=== PATIENT | female | born 1990 | race Caucasian/White ===

== ENCOUNTER 2017-02-26 12:38 | Emergency (ER) | payer MEDICAID ==
[~2017-02-26] VITALS: Ht 170.2 cm; Wt 72.1 kg
[~2017-02-26 12:38] MED LIST: AMOXICILLIN 50500 MG PO; BACTRIM DS 8001 TAB PO; CIPRO 500MG TA500 MG PO; DEPRESSION PO; ETODOLAC400 MG PO; KEFLEX 500MG.500 MG PO; KETOCONAZOLE200 MG PO; LODINE200 MG PO; LORTAB 5/500 501 TAB PO; MOTRIN600 M1 PO; MULTIVITAMIN1 TA1 PO; NAPROSYN 500MG500 MG PO; NIFEDIPINE XL 330 MG PO; NOMEDS; NOMEDS XX; PHENERGAN 25MG.25 M1 PO; PHENTERMINE37.5 MG PO; PREDNISONE 20MG20 MG PO; PRENATAL PLUS1 TA1 PO; ROBAXIN-750750 MG PO; TAMIFLU75 MG PO; TESSALON PERLE100 MG PO; TYLENOL/COD #31 EACH PO; ULTRACET 325 MG1 TAB PO; ULTRAM 50 MG TA50 MG PO; ULTRAM50 MG PO; VIBRAMYCIN 100100 MG PO; VICODIN 5/500 T1 TAB PO; VISTARIL25 MG PO; VOLTAREN75 MG PO; ZITHROMAX Z PA250 MG PO; ZITHROMAX Z-PA250 M1 PO
[2017-02-26] MEDS ORDERED: PHENAZOPYRIDIN200 MG PO (12:50)
[2017-02-26] MEDS ORDERED: CIPROFLOXACIN500 MG PO (12:50)
[2017-02-26 12:55] LABS: URINE BILIRUBIN - DIPSTICK NEGATIVE (NEG)
[2017-02-26 12:56] LABS: URINE BLOOD 2+ (NEG)
--- NOTE | 2017-02-26 13:08 | Urgent Treatment Center Report ---
History of Present Issue Date/Time Seen by Provider 02/26/17 1300 Visit Reason Pt arrived:Walked Presenting Problem:PT THINKS SHE MAY HAVE A UTI. PT C/O LOWER BACK AND FLANK PAIN AND ADVISES THAT WHEN SHE GOES TO URINATE, SHE HAS TO FORCE IT. PT STATES THAT IT HAS BEEN GOING ON FOR ABOUT 3 WEEKS AND SHE HAS BEEN ON ANTIBIOTICS BY HER PCP AND IT'S NOT HELPING Location if Accident: Onset of symptoms date/time:/ or onset unknown for:MEDICAL HX UNKNOWN Have you (or family members/close friends) recently traveled outside the [place]? N If Yes, where/when: Have you had exposure to infectious disease within the past month? TB? Other? Specify: c/o "I think I have a UTI still". c/o urinary frequency, hesitancy, urgency x "nearly 3 weeks". Reports saw PCP, Dr. Sosa initially. He dx her w/ UTI but did not check her urine. Prescribed cipro 500mg BID and pyridium 200mg TID PRN but just picked up 3rd prescription of it yesterday "this is the 3rd week taking that" and no improvement. Denies fever. Malaise several days ago for first time. Low back pain has persisted with right worse than left. Hasn't migrated and doesn't radiate. No nausea, vomiting, abdominal pain, dysurian. Other than being orange from pyridium, urine looks and smells the same. Denies vaginal discharge, itching, pain. Source patient Exam Limitations no limitations ALLERGIES Coded Allergies: No Known Allergies (06/30/16) Home Medications Reported Medications Ciprofloxacin HCl 500 MG PO BID PHENAZOPYRIDINE HCL (Phenazopyridine HCl) 200 MG PO TID History Medical History General CAD? No Angina: No [place]: No Hypertension? No Hyperlipidemia? No CHF? No DVT? No PE? No COPD? No Asthma? No Anemia? No GERD? No Gastric ulcers? No GI Bleed? No Hernia? No Thyroid Problems? No Hypothyroidism? No CVA? No Seizures? Yes Diabetes? No Insulin Dependent: No Insulin Pump: No Home FSBS? No Renal Insuffiency? No UTI? Yes Stones? No BPH? No GB Disease: No Nephritic Syndrome? No Asplenia? No Hepatitis? No Sickle Cell Disease? No Arthritis? No Migraines? No Cataracts? No Glaucoma? No MRSA? No HIV? No TB? No Anxiety? No Depression? No Cancer? No More? No Immunization HX DT/Tetanus < 1 YR AGO Flu NEVER Pneumonia NEVER Surgical Hx Previous Surgery?Y C SECTION X 2 Tubal Ligation Exploratory Laparoscopy Family History Family HX Diabetes Yes CAD Yes Hypertension Yes Hyperlipidemia Yes Cancer Yes TB No Social History Smoking Hx Smoker: Current Every Day Smoker Tobacco: Yes Type Cigarettes Packs/day < 1 Pack Alcohol Alcohol: No Review of Systems All Other Systems Reviewed and Negative Constitutional see HPI, denies chills Respiratory denies shortness of breath Cardiovascular denies chest pain Gastrointestinal see HPI, denies constipation, denies diarrhea Genitourinary see HPI, normal menstrual period ( but not currently). denies: abnormal vaginal bleeding, hematuria. Musculoskeletal see HPI Skin denies change in color, denies lesions, denies lumps, denies rash Psychiatric/Neurological denies numbness, denies tingling Physical Exam Vital Signs Vital Signs Date Time Temp Pulse Resp B/P Pulse O2 O2 Flow FiO2 Ox Delivery Rate 02/26 1245 97.6 86 18 126/74 97 General Appearance normal appearance, no apparent distress Respiratory Status No: respiratory distress. Lung Sounds anterior: lungs clear. posterior: lungs clear. bilateral: lungs clear. Cardiovascular regular rate/rhythm, no peripheral edema, no murmur Gastrointestinal normal bowel sounds, non tender, soft, no organomegaly, no pulsatile mass, no suprapubic tenderness, bladder not distended Back no vertebral tenderness, gait normal, CVA tenderness (R) (moderate to severe), CVA tenderness (L) (mild to moderate), full ROM Extremities normal range of motion, normal inspection Strength 5 Lower Ext (L), 5 Lower Ext (R) Neurologic alert Skin intact, normal color, warm/dry Medical Decision Making LABS/Meds/Orders Pt receiving controlled substance in ED? No Results/Orders Laboratory Tests 02/26/17 1315: Sodium 139, Potassium 4.0, Chloride 103, Carbon Dioxide 25, BUN 12, Creatinine 0.7, Estimated Creat Clear 139, Estimated GFR (MDRD) 101, Glucose 87, Calcium 8.9, WBC 8.9, RBC 4.57, Hgb 14.0, Hct 41.4, MCV 90.5, RDW 12.6, Plt Count 187, MPV 9.3, Gran % 65.5, Gran # 5.8, Lymphocytes % 28.3, Monocytes % 4.0, Eosinophils % 1.6, Basophils % 0.6, Lymphocytes # 2.5, Monocytes # 0.4, Eosinophils # 0.1, Basophils # 0.1, PUBS MCHC 33.8, MCH 30.6 02/26/17 1306: Sodium Cancelled, Potassium Cancelled, Chloride Cancelled, Carbon Dioxide Cancelled, BUN Cancelled, Creatinine Cancelled, Estimated Creat Clear Cancelled, Estimated GFR (MDRD) Cancelled, Glucose Cancelled, Calcium Cancelled, WBC Cancelled, RBC Cancelled, Hgb Cancelled, Hct Cancelled, MCV Cancelled, RDW Cancelled, Plt Count Cancelled, Gran % Cancelled, Gran # Cancelled, Lymphocytes % Cancelled, Eosinophils % Cancelled, Basophils % Cancelled, Lymphocytes # Cancelled, Eosinophils # Cancelled, Basophils # Cancelled, PUBS MCHC Cancelled, MCH Cancelled 02/26/17 1244: Urine Color YELLOW, Urine Appearance Clear, Urine pH 5.5, Ur Specific [place] 1.010, Urine Protein NEGATIVE, Urine Ketones NEGATIVE, Urine Blood 2+ H, Urine Nitrate NEGATIVE, Urine Bilirubin NEGATIVE, Urine Urobilinogen 0.2, Ur Leukocyte Esterase NEGATIVE, Urine Glucose NEGATIVE Orders Procedure Date/time Status CBC WITH AUTO DIFF 02/26 1308 Complete BASIC METABOLIC PROFILE 02/26 1308 Complete [facility] URINE DIPSTICK 02/26 1244 Complete Progress [facility] Progress Notes 1 Date 02/26/17 Time 1315 Comment RN at collecting blood for labs [facility] Progress Notes 2 Date 02/26/17 Time 1417 Comment Checked on patient. She is on phone. Doing ok. Request a drink but otherwise no needs. Still waiting on lab reults. RNXimena, called lab. Over looked. Will run now. Departure Departure Time of Disposition 1432 Disposition DC Home or Self Care(routine) Clinical Impression Primary Impression: Hematuria Secondary Impressions: Urinary frequency Condition STABLE Referrals Gelacio CEBALLOS,Oracio Ledesma Urologist, if unable to get into Dr. Brizuela. Due to blood seen in urine today. may require referral from Dr. Sosa so highly recommend you follow up with Dr. Sosa first. Sarath Sosa Should try to follow up here first. He needs to know current treatment isn't working so you came to [facility]. He can request [facility] records. If unable to get into him then can try going directly to urologist but I am not sure if your insurance requires referral from your family doctor first. Patient Instructions DI for Hematuria Additional Instructions Your blood count and kidney function was normal today STOP pyridium and cipro since you have taking it nearly 3 weeks and it isn't helping. Start and complete bactrim. Follow up in 1-[address] Sosa for further treatment and follow up. Discharge Counseling Counseled pt/family regarding diagnosis, test results, medications/RX, home care, follow up needs Prescriptions Current Visit Scripts SULFAMETHOXAZOLE W/TRIMETHOPRI (Bactrim Ds Tab) 1 TABLET PO BID #14 TAB at 0646
--- NOTE | 2017-02-26 13:08 | Urgent Treatment Center Report ---
History of Present Issue Date/Time Seen by Provider 02/26/17 1300 Visit Reason Pt arrived:Walked Presenting Problem:PT THINKS SHE MAY HAVE A UTI. PT C/O LOWER BACK AND FLANK PAIN AND ADVISES THAT WHEN SHE GOES TO URINATE, SHE HAS TO FORCE IT. PT STATES THAT IT HAS BEEN GOING ON FOR ABOUT 3 WEEKS AND SHE HAS BEEN ON ANTIBIOTICS BY HER PCP AND IT'S NOT HELPING Location if Accident: Onset of symptoms date/time:/ or onset unknown for:MEDICAL HX UNKNOWN Have you (or family members/close friends) recently traveled outside the [place]? N If Yes, where/when: Have you had exposure to infectious disease within the past month? TB? Other? Specify: c/o "I think I have a UTI still". c/o urinary frequency, hesitancy, urgency x "nearly 3 weeks". Reports saw PCP, Dr. Sosa initially. He dx her w/ UTI but did not check her urine. Prescribed cipro 500mg BID and pyridium 200mg TID PRN but just picked up 3rd prescription of it yesterday "this is the 3rd week taking that" and no improvement. Denies fever. Malaise several days ago for first time. Low back pain has persisted with right worse than left. Hasn't migrated and doesn't radiate. No nausea, vomiting, abdominal pain, dysurian. Other than being orange from pyridium, urine looks and smells the same. Denies vaginal discharge, itching, pain. Source patient Exam Limitations no limitations ALLERGIES Coded Allergies: No Known Allergies (06/30/16) Home Medications Reported Medications Ciprofloxacin HCl 500 MG PO BID PHENAZOPYRIDINE HCL (Phenazopyridine HCl) 200 MG PO TID History Medical History General CAD? No Angina: No [place]: No Hypertension? No Hyperlipidemia? No CHF? No DVT? No PE? No COPD? No Asthma? No Anemia? No GERD? No Gastric ulcers? No GI Bleed? No Hernia? No Thyroid Problems? No Hypothyroidism? No CVA? No Seizures? Yes Diabetes? No Insulin Dependent: No Insulin Pump: No Home FSBS? No Renal Insuffiency? No UTI? Yes Stones? No BPH? No GB Disease: No Nephritic Syndrome? No Asplenia? No Hepatitis? No Sickle Cell Disease? No Arthritis? No Migraines? No Cataracts? No Glaucoma? No MRSA? No HIV? No TB? No Anxiety? No Depression? No Cancer? No More? No Immunization HX DT/Tetanus < 1 YR AGO Flu NEVER Pneumonia NEVER Surgical Hx Previous Surgery?Y C SECTION X 2 Tubal Ligation Exploratory Laparoscopy Family History Family HX Diabetes Yes CAD Yes Hypertension Yes Hyperlipidemia Yes Cancer Yes TB No Social History Smoking Hx Smoker: Current Every Day Smoker Tobacco: Yes Type Cigarettes Packs/day < 1 Pack Alcohol Alcohol: No Review of Systems All Other Systems Reviewed and Negative Constitutional see HPI, denies chills Respiratory denies shortness of breath Cardiovascular denies chest pain Gastrointestinal see HPI, denies constipation, denies diarrhea Genitourinary see HPI, normal menstrual period ( but not currently). denies: abnormal vaginal bleeding, hematuria. Musculoskeletal see HPI Skin denies change in color, denies lesions, denies lumps, denies rash Psychiatric/Neurological denies numbness, denies tingling Physical Exam Vital Signs Vital Signs Date Time Temp Pulse Resp B/P Pulse O2 O2 Flow FiO2 Ox Delivery Rate 02/26 1245 97.6 86 18 126/74 97 General Appearance normal appearance, no apparent distress Respiratory Status No: respiratory distress. Lung Sounds anterior: lungs clear. posterior: lungs clear. bilateral: lungs clear. Cardiovascular regular rate/rhythm, no peripheral edema, no murmur Gastrointestinal normal bowel sounds, non tender, soft, no organomegaly, no pulsatile mass, no suprapubic tenderness, bladder not distended Back no vertebral tenderness, gait normal, CVA tenderness (R) (moderate to severe), CVA tenderness (L) (mild to moderate), full ROM Extremities normal range of motion, normal inspection Strength 5 Lower Ext (L), 5 Lower Ext (R) Neurologic alert Skin intact, normal color, warm/dry Medical Decision Making LABS/Meds/Orders Pt receiving controlled substance in ED? No Results/Orders Laboratory Tests 02/26/17 1315: Sodium 139, Potassium 4.0, Chloride 103, Carbon Dioxide 25, BUN 12, Creatinine 0.7, Estimated Creat Clear 139, Estimated GFR (MDRD) 101, Glucose 87, Calcium 8.9, WBC 8.9, RBC 4.57, Hgb 14.0, Hct 41.4, MCV 90.5, RDW 12.6, Plt Count 187, MPV 9.3, Gran % 65.5, Gran # 5.8, Lymphocytes % 28.3, Monocytes % 4.0, Eosinophils % 1.6, Basophils % 0.6, Lymphocytes # 2.5, Monocytes # 0.4, Eosinophils # 0.1, Basophils # 0.1, PUBS MCHC 33.8, MCH 30.6 02/26/17 1306: Sodium Cancelled, Potassium Cancelled, Chloride Cancelled, Carbon Dioxide Cancelled, BUN Cancelled, Creatinine Cancelled, Estimated Creat Clear Cancelled, Estimated GFR (MDRD) Cancelled, Glucose Cancelled, Calcium Cancelled, WBC Cancelled, RBC Cancelled, Hgb Cancelled, Hct Cancelled, MCV Cancelled, RDW Cancelled, Plt Count Cancelled, Gran % Cancelled, Gran # Cancelled, Lymphocytes % Cancelled, Eosinophils % Cancelled, Basophils % Cancelled, Lymphocytes # Cancelled, Eosinophils # Cancelled, Basophils # Cancelled, PUBS MCHC Cancelled, MCH Cancelled 02/26/17 1244: Urine Color YELLOW, Urine Appearance Clear, Urine pH 5.5, Ur Specific [place] 1.010, Urine Protein NEGATIVE, Urine Ketones NEGATIVE, Urine Blood 2+ H, Urine Nitrate NEGATIVE, Urine Bilirubin NEGATIVE, Urine Urobilinogen 0.2, Ur Leukocyte Esterase NEGATIVE, Urine Glucose NEGATIVE Orders Procedure Date/time Status CBC WITH AUTO DIFF 02/26 1308 Complete BASIC METABOLIC PROFILE 02/26 1308 Complete [facility] URINE DIPSTICK 02/26 1244 Complete Progress [facility] Progress Notes 1 Date 02/26/17 Time 1315 Comment RN at collecting blood for labs [facility] Progress Notes 2 Date 02/26/17 Time 1417 Comment Checked on patient. She is on phone. Doing ok. Request a drink but otherwise no needs. Still waiting on lab reults. RNXimena, called lab. Over looked. Will run now. Departure Departure Time of Disposition 1432 Disposition DC Home or Self Care(routine) Clinical Impression Primary Impression: Hematuria Secondary Impressions: Urinary frequency Condition STABLE Referrals Gelacio CEBALLOS,Oracio Ledesma Urologist, if unable to get into Dr. Brizuela. Due to blood seen in urine today. may require referral from Dr. Sosa so highly recommend you follow up with Dr. Sosa first. Sarath Sosa Should try to follow up here first. He needs to know current treatment isn't working so you came to [facility]. He can request [facility] records. If unable to get into him then can try going directly to urologist but I am not sure if your insurance requires referral from your family doctor first. Patient Instructions DI for Hematuria Additional Instructions Your blood count and kidney function was normal today STOP pyridium and cipro since you have taking it nearly 3 weeks and it isn't helping. Start and complete bactrim. Follow up in 1-[address] Sosa for further treatment and follow up. Discharge Counseling Counseled pt/family regarding diagnosis, test results, medications/RX, home care, follow up needs Prescriptions Current Visit Scripts SULFAMETHOXAZOLE W/TRIMETHOPRI (Bactrim Ds Tab) 1 TABLET PO BID #14 TAB at 6049
[2017-02-26 14:18] LABS: LYMPH # 2.5 K/mm3 (0.7-4.5); LYMPH % 28.3 % (10-50.0)
[2017-02-26] MEDS ORDERED: BACTRIM DS 8001 TA1 PO (14:36)
[2017-02-26 14:39] VITALS: BP 126/74
== END 2017-02-26 14:40 | disposition home or self-care (01) ==
LOC: UTC 12:38
PROVIDERS: Nurse Practitioner Family
DX: R31.9 Hematuria, unspecified (principal)

== ENCOUNTER 2017-07-31 06:09 | Inpatient (IN) | payer MEDICAID ==
[2017-07-31] VITALS (19 sets, daily range): BP systolic 105–139; BP diastolic 58–81
[~2017-07-31] VITALS: Ht 170.2 cm; Wt 81.6 kg
[~2017-07-31 06:09] MED LIST changes: +BACTRIM DS 8001 TA1 PO; +CIPROFLOXACIN500 MG PO; +PHENAZOPYRIDIN200 MG PO
--- NOTE | 2017-07-31 09:47 | Operative Note ---
Procedure/Operative Record Date of Procedure: 07/31/17 Referring physician: Dr. Calloway Pre-op diagnosis: 1. Pelvic pain. 2. Dysfunctional uterine bleeding. 3. RIGHT ovarian cyst. Post-op diagnosis: 1. Pelvic pain. 2. Dysfunctional uterine bleeding. 3. RIGHT ovarian cyst. Procedure performed: Laparoscopically assisted vaginal hysterectomy, with RIGHT salpingo- oophorectomy. Surgeon: Baljit Stein Legal Support Manager(s): BETO Gonzalez Anesthesia: Gen., CARBONIZER TESTER Evi Indications: 1. Pelvic pain. 2. Dysfunctional uterine bleeding. 3. RIGHT ovarian cyst. Description of procedure: After the patient was prepped and draped in usual fashion and general anesthesia was administered, examination under anesthesia revealed a retroverted boggy uterus, with an enlarged RIGHT ovary. A weighted speculum was placed within the posterior fourchette of the vagina, and the anterior lip of the cervix was grasped with a single-tooth tenaculum. The cervix was stenotic, and so was dilated to number 14 Hegar dilators. A HUMI uterine elevator was then inserted into the endocervix, and the bulb inflated for easy uterine manipulation during the laparoscopy. After appropriate regloving, the skin on either side of the umbilicus was tented up with towel clips. A small incision was made in the base of the umbilicus with a knife, and a Veress needle was inserted into the abdominal cavity. After demonstration of negative pressure, and adequate phisoperitoneum was created with carbon dioxide gas. The Veress needle was then replaced with a trocar and cannula, using the Opti-Recurious system, and the trocar replaced with a laparoscope. The uterus was symmetrically enlarged and boggy. Each fallopian tube showed evidence of previous ligation. The LEFT ovary appeared normal. On the RIGHT side, the ovary was enlarged and cystic with a hemorrhagic corpus luteum cyst. The upper abdomen was explored. The liver and spleen edges and gallbladder were visualized and felt to be normal. The appendix was not visualized. Turning to the pelvis, after transillumination and under direct visualization, accessory ports were placed in the RIGHT and LEFT lower quadrants. Using a combination of endo-Babcocks and Endo DILCIA staplers, the infundibulopelvic ligament on the RIGHT was crossclamped and stapled, thus including the RIGHT adnexa within the uterine specimen. On the LEFT side the ovarian ligament was crossclamped and stapled, thus leaving the LEFT adnexa in situ. Further stapling on each side interrupted the uterine blood flow and cross clamped the cardinal and uterosacral ligaments. Bladder peritoneum was then taken down with EndoShears. The phisoperitoneum was reduced and the procedure was then continued from below. The HUMI was removed, and the weighted speculum was replaced in the posterior fourchette of the vagina. The cervix was grasped with a double-tooth tenaculum, and circumcised with a knife. There was considerable bleeding from the vaginal cuff, and this continued throughout the case, in spite of cautery and suturing. A posterior colpotomy incision was made with Maxwell scissors, and the long lip of the weighted speculum was placed within the posterior peritoneum. The round ligaments were crossclamped and cut, and then Laura sutured and free tied with #1 Vicryl. The remaining pedicles were likewise crossclamped and cut and Laura sutured with #1 Vicryl. The uterus was flipped anteriorly and removed, including the RIGHT adnexa. The posterior vaginal cuff was then run and locked with #1 Vicryl, to include the uterosacral ligament pedicles for vaginal support, in a Varma fashion, to reduce the enterocele. The anterior peritoneum was then grasped with a long Allis clamp, and closed with a running pursestring suture of 0 Vicryl, and pulled tight. The vaginal cuff was closed with an anteroposterior running locked suture of #1 Vicryl. After appropriate regloving, the phisoperitoneum was then reinstituted, and reinspection of the pelvis revealed an intact vaginal cuff, normal LEFT adnexa, and no undue bleeding. The phisoperitoneum was then reduced, and the incision removed under direct visualization. The incisions were infused with a dilute solution of Marcaine, as a local anesthetic, and closed with subcuticular sutures of 3-0 Vicryl. The wounds were appropriately dressed. The sponge and needle counts correct. The urine was clear in the Clayton catheter. The estimated blood loss was 600 mL. Patient tolerated procedure well, was taken to PACU in excellent condition. EBL (ml): 600 Complications: None Specimens: Uterus and RIGHT adnexa at 0968
--- NOTE | 2017-07-31 09:52 | Anesthesia Record ---
Anesthesia Record Part I Total IV fluids: 900 EBL (ml): 600 Urine Output: 250 B/P: 146/99 % SaO2: 94 Pulse: 59 Resps: 18 Temp: 97.5 Patient is: Awake, Stable Stable to PACU at: 0949 at 0931
--- NOTE | 2017-07-31 09:53 | Anesthesia Record ---
Anesthesia Record Part II Discharge time: 1019 Destination: Same day surgery PACU nurse assessment review? Yes Patient is: Awake, Stable Anesthesia complications? No at 9812
[2017-07-31 10:54] LABS: HEMOGLOBIN 11.9 g/dL (12.2-16.2)
--- NOTE | 2017-07-31 13:18 | ACUTE CARE PROGRESS NOTE (QUA) ---
Progress Notes Subjective Date 07/31/17 Time 1317 Assessment/Plan This inpt stay is expected to cross 2 MNs from start of care No Comments: This is day of surgery. Surgery has been explained to the patient and her . She is afebrile. Her pain is under reasonably good control at this time. Urine output is good. She is afebrile. Impression: Stable. at 1312
[2017-07-31 14:31] LABS: URINE BILIRUBIN - DIPSTICK NEGATIVE (NEG); URINE BLOOD NEGATIVE (NEG)
[2017-07-31 14:44] LABS: URINE SQUAMOUS CELLS OCC #/hpf (0-5)
[2017-08-01] VITALS (30 sets, daily range): BP systolic 102–154; BP diastolic 49–97
[2017-08-01 00:45] LABS: HEMOGLOBIN 7.9 g/dL (12.2-16.2)
--- NOTE | 2017-08-01 01:09 | ACUTE CARE PROGRESS NOTE (QUA) ---
Progress Notes Subjective Date 08/01/17 Time 0103 Note I was called approximately 30 minutes ago for an acute change in the patient's status. She is status post LAVH and RIGHT salpingo-oophorectomy yesterday morning without apparent complications. Laparoscopy at the close of the procedure demonstrated a dry vaginal cuff and no intra-abdominal bleeding. The patient's postop hemoglobin was 11.9 g. When I saw her at approximately 1330 yesterday, her abdomen was soft and her urine output was good. She was feeling okay at that time. I spoke with her, but did not examine her, at approximately 1600 hrs. there was no change in her status at that time. The patient apparently awoke from sleep at 0015 with acute abdominal pain. Her urine output since 1900 yesterday has been 400 mL. The catheter has been flushed. Patient's blood pressure is 170/96. Pulse rate is 114. Her abdomen has become increasingly distended. Her stat hemoglobin is 7.9 g. Her 3 laparoscopic wounds appear intact and dry, but there is significant abdominal distention and the patient is in significant pain, on relieved by Dilaudid and Valium. There is no significant vaginal bleeding. Her suprapubic area appears nontender, but her midabdomen is exquisitely tender throughout. Impression: Postop hemorrhage, etiology uncertain at this time. I've discussed this with the patient and the plan is for return to the operating room for exploratory laparotomy and probable ligation of bleeder(s ). She has been typed and crossed for 4 units of packed cells. The Operating Room crew is en route. Assessment/Plan This inpt stay is expected to cross 2 MNs from start of care No at 0109
[2017-08-01 02:14] LABS: ABO BLOOD TYPE O; RH BLOOD TYPE POSITIVE
[2017-08-01 02:14] LABS: ANTIHUMAN GLOB CROSSMATCH COMPAT
--- NOTE | 2017-08-01 02:55 | Anesthesia Record ---
Anesthesia Record Part I Total IV fluids: 1400 EBL (ml): 500 Urine Output: 600 Units of blood given: 2 (1 in or, 1 in pacu) Type of product: Packed RBCs B/P: 140/76 % SaO2: 98 Pulse: 92 Resps: 16 Temp: 98.5 Patient is: Drowsy, Nasal O2, Stable Stable to PACU at: 0240 at 0255
--- NOTE | 2017-08-01 02:55 | Anesthesia Record ---
Anesthesia Record Part II Discharge time: 309 Destination: Second Floor PACU nurse assessment review? Yes Patient is: Stable Anesthesia complications? No at 0251
--- NOTE | 2017-08-01 03:05 | Operative Note ---
Procedure/Operative Record Date of Procedure: 08/01/17 Referring physician: Dr. Calloway Pre-op diagnosis: Postop hemorrhage Post-op diagnosis: Postop hemorrhage Procedure performed: Exploratory laparotomy with evacuation of hemoperitoneum and ligation of bleeders Surgeon: Baljit Stein Human Resource Intern(s): Dr. Newman Anesthesia: Gen., PHYSICIST ASTROPHYSICS [facility] [place] Indications: Postop hemorrhage Findings: At approximately 15 hours postop laparoscopically assisted vaginal hysterectomy and RIGHT salpingo-oophorectomy, the patient, who had been doing well until a point, had the sudden onset of severe generalized abdominal pain and abdominal distension. Her urine output had been somewhat low over the previous several hours. A stat hemoglobin was returned at 7.9 g (it had been 11.9 g 1 hour postop ). The patient was tachycardic at 114 an extremely anxious. The presumptive diagnosis of postoperative hemorrhage was made, and the patient was taken to the operating room for emergency exploratory laparotomy. Just prior to induction of anesthesia, the patient experienced what appeared to be an anxiety attack, and became short of breath. With oxygen and repositioning, this cleared and did not recur. She remained stable throughout the subsequent surgery. Description of procedure: After the patient was prepped and draped in usual fashion and general anesthesia was administered, the 3 laparoscopic incisions were inspected and found to be intact without any evidence of bleeding in the underlying tissue. The abdomen was quite distended. A low Pfannenstiel incision was made across the midline, through the previous incision, and the fat and fascia dissected usual fashion. There was no blood until the peritoneum was entered with Metzenbaum scissors. At that point a large amount of dark blood and clots extruded. The peritoneal incision was extended above and below, and a self-retaining Jazmyne retractor with bladder blade was placed. It was noted that the bladder was quite distended and at this point the circulating nurse adjusted the Clayton, which apparently had become kinked during the transport process. The bladder rapidly deflated and urine output was good. After the hemoperitoneum was evacuated, a systematic inspection of the pelvis and surgical sites was undertaken. The LEFT tube and ovary remained in situ, and appeared normal. There was no evidence of bleeding from the LEFT side of the pelvis. Likewise, the vaginal cuff was intact and showed no evidence of bleeding. Continuing on to the RIGHT adnexal area, a single small pumping vessel was identified where one of the Endo DILCIA aleksandra had apparently loosened or dislodged. This vessel was grasped with a Luann clamp and oversewn with a [id number] suture of 2-0 Vicryl. The rest of the abdomen and pelvis were carefully inspected and no other bleeding sites were noted. Extensive irrigation was carried out, and Gelfoam was placed against the RIGHT adnexal pedicles for further hemostasis. The peritoneum was grasped with 3 Luann clamps, and closed with a running semi-locked suture of 0 Vicryl. The muscle was approximated with a running unlocked suture of 0 Vicryl. The fascia was closed with a running locked suture of #1 Vicryl. The subcutaneous fat and Claudio's fascia were closed with a running unlocked suture of 2-0 Vicryl. The skin was closed with a subcuticular suture of 3-0 Vicryl, and appropriately dressed. The 3 laparoscopic incisions were also appropriately dressed. Because of the urgency to start surgery, the sponge count was not completed prior to incision. Therefore, an intraoperative x-ray was taken, which revealed no evidence of retained sponges or instruments. The end of the procedure, the first unit of transfused blood was begun, with the plan to give 2 units and then reevaluate the patient's hemoglobin. The sponge and needle count was correct. The estimated blood loss was 500 mL. The patient tolerated the procedure well, and was taken to PACU in good condition. EBL (ml): 500 Complications: None Specimens: None at 0304
[2017-08-01 06:30] LABS: HEMOGLOBIN 9.1 g/dL (12.2-16.2)
--- NOTE | 2017-08-01 08:42 | RADIOLOGY REPORT PS360 ---
KUB (SINGLE VIEW) COMPARISON: CT scan abdomen and pelvis 07/01/2016 HISTORY: Observation for foreign body, no instrument count prior to surgery TECHNIQUE: Portable AP pelvis FINDINGS: The iliac bones and pubic bones appear normal. Both hips are normally articulated with no abdomen I seen. There is a Clayton catheter seen within the urinary bladder. There are no opaque or semiopaque or metallic foreign bodies seen. IMPRESSION: Grossly negative portable AP pelvis
--- NOTE | 2017-08-01 09:22 | ACUTE CARE PROGRESS NOTE (QUA) ---
Progress Notes Subjective Date 08/01/17 Time 0919 Note This is postop day number 1 from the original surgery and postop approximately 6 hours from her subsequent surgery. The patient is afebrile. Her vital signs are stable. Wounds clean. Abdomen now soft. Urine output is good. Surgery has been explained to the patient and her . Hemoglobin after 2 units of packed cells is 9.1 g. The plan is to treat conservatively and repeat hemoglobin later this morning. I have explained to the patient the possible need for further transfusion. Impression: Stable. Assessment/Plan This inpt stay is expected to cross 2 MNs from start of care Yes (major surgery) at 0921
[2017-08-01 10:29] LABS: HEMOGLOBIN 9.1 g/dL (12.2-16.2)
[2017-08-02] VITALS (8 sets, daily range): BP systolic 114–153; BP diastolic 72–88
[2017-08-02 07:47] LABS: HEMOGLOBIN 9.7 g/dL (12.2-16.2)
--- NOTE | 2017-08-02 10:52 | ACUTE CARE PROGRESS NOTE (QUA) ---
Progress Notes Subjective Date 08/02/17 Time 1038 Note POD #2 LAVH, POD #1 exploratory laparotomy with ligation of bleeding vessel Tolerating clears and eager for solid food and Dr. Disla Asking to be discharged today Pain control sufficient Denies acute abdominal pain or worssening pain, denies vaginal bleeding, nausea, vomiting, chest pain or shortness of breath Objective Findings Last VS-Temp:99.3 B/P:146/74 Pulse:83 Resp:18 SaO2:94 OXYGEN Last weight lbs:180 oz:0 K.648 Method:Floor Scales Hgb 9.7 Exam General appearance: normal appearance, no acute distress Cardiovascular: regular rate & rhythm Respiratory: clear to auscultation ABD: non-distended, normal bowel sounds, soft (abdominal dressings dry/intact ) Assessment/Plan Problem List 1. Abdominal pain Patient condition Stable Plan: continue current care, make medication changes (advance IV pain meds to po ), order additional tests (advance to regular diet), initiate discharge plan ( ambulate with assistance) This inpt stay is expected to cross 2 MNs from start of care Yes (major surgery) at 1059
--- NOTE | 2017-08-02 14:17 | ACUTE CARE PROGRESS NOTE (QUA) ---
Progress Notes Subjective Date 08/02/17 Time 1400 Note complaining of increased abdominal pain reg diet for lunch; ate half chicken salad sandwich, chocolate pudding, few upper sorbian fries and dinner role. no carbonation yet. feels like she needs to urinate but was unable to void when up to bathroom. no nausea/vomiting. minimal flatus passed. Objective Findings Last VS-Temp:99.3 B/P:146/74 Pulse:83 Resp:24 SaO2:94 OXYGEN Last weight lbs:180 oz:0 K.648 Method:Floor Scales Hgb 9.0 (stable from earlier this morning and yesterday) Exam General appearance: no acute distress, other, anxious and tachypnic with and three children in room calmed down with normal appearing demeanor once family left the room Respiratory: no respiratory distress ABD: bowel sounds present (mild distention, bowel sounds), tenderness Genitourinary: decreased output, urine concentrated (straight cath for 50cc urine), dysuria (concentrated appearance) Skin: bruising around laparoscopic incisions Assessment/Plan Problem List 1. Abdominal pain Patient condition Stable This inpt stay is expected to cross 2 MNs from start of care Yes (major surgery) Comments: Increased pain with slight abdominal distention and decreased bowel sounds vitals stable and Hgb unchanged from lab draw earlier today and last night; no current evidence of intra-abdominal bleed likely more GI related; given simethicone and will modify diet as necessary decreased urine output noted with concentrated urine; IVF bolus given and will resume rate until taking sufficient po fluids will repeat H/H 4 hours; if decrease Hgb or any new/acute symptoms, will follow with CT abdomen at 1415
[2017-08-02 14:37] LABS: URINE BILIRUBIN - DIPSTICK NEGATIVE (NEG); URINE BLOOD TRACE-LYSED (NEG)
[2017-08-02 17:15] LABS: HEMOGLOBIN 9.1 g/dL (12.2-16.2)
[2017-08-02 17:18] LABS: URINE BILIRUBIN - DIPSTICK NEGATIVE (NEG); URINE BLOOD NEGATIVE (NEG)
[2017-08-02 17:25] LABS: URINE SQUAMOUS CELLS OCC #/hpf (0-5)
[2017-08-03 04:06] VITALS: BP 132/76
--- NOTE | 2017-08-03 09:21 | ACUTE CARE PROGRESS NOTE (QUA) ---
Progress Notes Subjective Date 08/03/17 Time 0910 Note POD 3 LAVH, POD 2 exploratory laparotomy with ligation of bleeding vessel/postop hemorrhage Did well yesterday afternon/evening after family went home and she was able to rest. Because of her apparent acute worsening of pain while family was here, hemoglobin was rechecked at the time and again 4 hours later, and was stable from the value after her ex lap and transfusion (9.0). She is doing better with po dilaudid than she did with percocet, and NSAIDs have been resumed now that no concern for postop bleeding. she is tolerating diet today after some concern yesterday for mild ileus, and has active bowel sounds today. Decreased urine output yesterday with very concentrated urine and difficulty voiding. IVF restarted and catheter placed. Urine output 900cc over last shift; catheter still in place. No new complaints. Nursing reports: no complaints (slept well through the night) Objective Findings Last VS-Temp:98.4 B/P:132/76 Pulse:99 Resp:16 SaO2:96 ROOM AIR Last weight lbs:180 oz:0 K.648 Method:Floor Scales Exam General appearance: alert, awake, no acute distress Cardiovascular: regular rate & rhythm Respiratory: clear to auscultation ABD: non-distended, normal bowel sounds, no rebound (Incisions dry/intact), soft, no guarding Genitourinary: other, normal urine output; catheter still in place Skin: other, brusing on abdomen around trocar sites Reviewed: medications, vital signs, lab results Assessment/Plan Problem List 1. Abdominal pain Patient condition Stable Plan: continue current care, plan for discharge tomorrow, d/c catheter this am with voiding trial advance to regular diet ambulate with assistance This inpt stay is expected to cross 2 MNs from start of care Yes (major surgery) at 0921
[2017-08-03 09:40] VITALS: BP 117/66
[2017-08-03 11:55] VITALS: BP 122/76
[2017-08-03 16:30] VITALS: BP 106/77
[2017-08-03 19:30] VITALS: BP 112/64
[2017-08-03 23:05] VITALS: BP 113/69
[2017-08-04 04:40] VITALS: BP 114/61
[2017-08-04 07:45] VITALS: BP 123/79
[2017-08-04 07:54] VITALS: BP 123/79
[2017-08-04] MEDS ORDERED: HYDROMORPHONE2 MG PO (08:55)
[2017-08-04 11:15] VITALS: BP 120/72
--- NOTE | 2017-08-04 11:31 | PHARMACY CLINIC NOTE ---
Patient Demographics Patient Demographics Admission date: 08/01/17 Date: 08/04/17 Time: 1130 Allergies Coded Allergies: No Known Allergies (08/01/17) HEIGHT- FT: 5 IN: 7.00 K.648 VTE General Information Disclaimer The following section includes nursing documentation that has been pulled in for pharmacy review. Patient's VTE score: 0 Patient's VTE Risk: VERY LOW RISK VTE prophylaxis NQF [id number] VTE prophylaxis ordered? Yes Type of prophylaxis/treatment: ICD at 1131
--- NOTE | 2017-08-04 11:58 | ACUTE CARE PROGRESS NOTE (QUA) ---
Progress Notes Subjective Date 08/04/17 Time 1156 Note She is doing very well this morning. She is eating and drinking and ambulating. Her pain is reasonably well-controlled. She denies any chest pain, shortness of breath or calf tenderness. Patient/family reports: feeling better, no complaints Objective Findings Last VS-Temp:98.2 B/P:120/72 Pulse:82 Resp:18 SaO2:99 ROOM AIR Last weight lbs:180 oz:0 K.648 Method:Floor Scales Exam General appearance: normal appearance, alert, awake, no acute distress Eyes: normal exam ENT: normal exam, mucous membranes moist Neck: normal inspection Cardiovascular: normal exam, normal sinus rhythm Respiratory: normal exam, aerating well ABD: normal exam, non-distended Genitourinary: normal voiding & quantity Extremities: full range of motion Skin: normal exam, normal color Reviewed: vital signs, lab results Assessment/Plan Problem List 1. Abdominal pain Patient condition Improving, Stable Plan: continue current care, initiate discharge plan This inpt stay is expected to cross 2 MNs from start of care Yes (major surgery) Comments: She is doing very well today. We will plan to send her home this morning. at 1157
--- NOTE | 2017-08-08 11:25 | DISCHARGE SUMMARY STANDARD ---
Discharge Summary Date of admission: 07/31/17 Date of discharge: 08/04/17 Patient condition: Stable Discharge diagnosis (es): 1. Dysfunctional uterine bleeding. 2. Pelvic pain. 3. RIGHT ovarian cyst. 4. hemorrhage. Hospital course: This 27-year-old female was admitted on 07/31/17 for definitive treatment of dysfunctional uterine bleeding, pelvic pain, and a RIGHT ovarian cyst. The date of admission, she was taken to the operating room, where she underwent a laparoscopically assisted vaginal hysterectomy and RIGHT salpingo-oophorectomy, without apparent complications. Laparoscopic inspection of the vaginal cuff and pelvis after the hysterectomy revealed full hemostasis. The patient did well for the most part during the 12-14 hours postoperatively. She did have some nausea and vomiting, apparently with some fairly violent retching. But her pain level was under control until approximately 2400 hrs. on 07/31/17, when she awoke with severe abdominal pain and distention. Her vital signs reflected a lower blood pressure and tachycardia. There was no vaginal bleeding. The patient was rating her pain as 10 out of 10 and was writhing in bed. Her hemoglobin had dropped to approximately 7 g, and the diagnosis was made of hemorrhage. The patient was subsequently taken to the operating room, where she underwent an exploratory laparotomy and evacuation of hemoperitoneum with an estimated blood loss 500 mL. The LEFT adnexa remains in situ and appeared normal. Vaginal cuff was normal, but there was a dislodged staple (from the Endo DILCIA stapler) by the RIGHT infundibulopelvic ligament pedicle. Small pumping vessel was noted beneath that and it was oversewn, with result of good hemostasis. Extensive irrigation was carried out. The patient was transfused 2 units of blood, and did well in PACU and subsequently. Hemoglobin stabilized at 9.1 g., and she was clinically stable at that level. She continued to do well, and had good bowel sounds at the time that she was discharged by Dr. Pedro Vázquez in my absence). She was sent home on oral iron 3 times a day and on oral Dilaudid (2 mg) one by mouth every 6 hours when necessary pain. She was given appropriate instructions as to diet and exercise and wound care, and given an appointment for follow-up in 1 week. She is not a smoker. at 1128
--- OUTSIDE RECORDS SUMMARY | 2017-08-26 05:12 | External Medical Summary Rpt ---
Demographics Preferred Language Uruguayan Marital Status Unknown Episcopalian Affiliation Unknown Race Unknown Ethnic Group Unknown Author Author [place] Address Unknown Phone Immunization No patient found.
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
--- OUTSIDE RECORDS SUMMARY | 2017-08-26 05:12 | External Medical Summary Rpt ---
Demographics Preferred Language Marshallese Marital Status Unknown Judaism Affiliation Unknown Race Unknown Ethnic Group Unknown Author Author LONDON Address Unknown Phone Immunization No patient found.
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
--- OUTSIDE RECORDS SUMMARY | 2017-08-26 05:13 | External Medical Summary Rpt ---
Author Author [employer], [facility] [employer] [facility] Address Unknown Phone Unavailable Results CBC W Auto Differential panel in Blood Observa Value Referen Units Interpr Notes Date tion ce etation Range Basophils 0 - 0.2 K/MM3 Normal No Aug 20 informati 2016 5:45 [#/volume on in PM ] in source Blood by data Automated count Basophils 0.1 - 2.0 % Normal No Aug 20 / informati 2016 5:45 leukocyte on in PM s in source Blood by data Automated count Eosinophi 0.0 - 0.4 K/mm3 Normal No Aug 20 ls informati 2016 5:45 [#/volume on in PM ] in source Blood by data Automated count Eosinophi 0.1 - % Normal No Aug 20 ls/100 12.0 informati 2016 5:45 leukocyte on in PM s in source Blood by data Automated count Granulocy 1.8 - 7.8 K/mm3 Normal No Aug 20 joyce informati 2016 5:45 [#/volume on in PM ] in source Blood by data Automated count Granulocy 37.0 - % Normal No Aug 20 joyce/100 80.0 informati 2016 5:45 leukocyte on in PM s in source Blood by data Automated count Hematocri 37.0 - % Low No Aug 20 t [Volume 47.0 informati 2016 5:45 on in PM Fraction] source of Blood data Hemoglobi 12.2 - g/dL Low No Aug 20 n 16.2 informati 2016 5:45 [Mass/vol on in PM ume] in source Blood data Lymphocyt 0.7 - 4.5 K/mm3 Normal No Aug 20 es informati 2016 5:45 [#/volume on in PM ] in source Unspecifi data ed specimen by Automated count Lymphocyt 10 - 50.0 % Normal No Aug 20 es informati 2016 5:45 [#/volume on in PM ] in source Unspecifi data ed specimen by Automated count Erythrocy 27 - 31.2 pg Normal No Aug 20 te mean informati 2016 5:45 corpuscul on in PM ar source hemoglobi data n [Entitic mass] Erythrocy 31.8 - g/dl Normal No Aug 20 te mean 35.4 informati 2016 5:45 corpuscul on in PM ar source hemoglobi data n concentra tion [Mass/vol ume] by Automated count Erythrocy 82.2 - fl Normal No Aug 20 te mean 97.8 informati 2016 5:45 corpuscul on in PM ar volume source [Entitic data volume] by Automated count Monocytes 0.1 - 1.0 K/mm3 Normal No Aug 20 inform2016 5:45 [#/volume on in PM ] in source Blood by data Automated count Monocytes 1.7 - 9.3 % Normal No Aug 20 /100 informati 2016 5:45 leukocyte on in PM s in source Blood by data Automated count Platelet 7.4 - fl High No Aug 20 mean 10.4 informati 2016 5:45 volume on in PM [Entitic source volume] data in Blood by Automated count Platelets 142 - 424 K/mm3 No No Aug 20 informati informati 2016 5:45 [#/volume on in on in PM ] in source source Blood data data Erythrocy 4.2 - 5.4 M/mm3 Low No Aug 20 joyce informati 2016 5:45 [#/volume on in PM ] in source Amniotic data fluid Erythrocy 11.5 - % Normal No Aug 20 te 17.5 informati 2016 5:45 distribut on in PM ion width source [Entitic data volume] by Automated count Leukocyte 4.8 - K/MM3 Normal No Aug 20 s 10.8 informati 2016 5:45 [#/volume on in PM ] in source Blood data INR in Blood by Coagulation assay Observa Value Referen Units Interpr Notes Date tion ce etation Range IS PATIENT ON ANTICOAGULANTS? N INR in 0.9 - 1.1 No Normal INDICATIO Aug 20 Blood by informati N 2016 5:45 Coagulati on in PM on assay source INR data RANGETHER APY FOR DVT, PE, ATRIAL FIB; 2.0 - 3.0PROPHY LAXIS FOR VTETHERAP Y FOR MECHANICA L HEART 2.5 - 3.5VALVE; PREVENTIO N OF SYSTEMICE MBOLISM SECONDARY TO AMI Prothromb 9.4 - SECONDS Normal No Aug 20 in time 11.8 informati 2016 5:45 (PT) in on in PM Platelet source poor data plasma by Coagulati on assay Activated partial thrombplastin time (aPTT) in Platelet poor plasma by Coagulation assay Observa Value Referen Units Interpr Notes Date tion ce etation Range IS PATIENT ON ANTICOAGULANTS? N Activated 23.6 - SECONDS Normal No Oct 4 partial 34.0 informati 2016 5:45 thrombpla on in PM stin time source (aPTT) data in Platelet poor plasma by Coagulati on assay Comprehensive metabolic 2000 panel in Serum or Plasma Observa Value Referen Units Interpr Notes Date tion ce etation Range Albumin/G 1.1 - 1.8 No Low No Oct 4 lobulin informati informati 2016 5:45 [Mass on in on in PM ratio] in source source Serum or data data Plasma Albumin 3.4 - 5.0 gm/dL Normal No Oct 4 [Mass/vol informati 2016 5:45 ume] in on in PM Serum or source Plasma data Alkaline 46 - 116 U/L Normal No Oct 4 phosphata informati 2016 5:45 se on in PM [Enzymati source c data activity/ volume] in Serum or Plasma Bilirubin 0.2 - 1.0 mg/dL Normal No Oct 4 .total informati 2016 5:45 [Mass/vol on in PM ume] in source Serum or data Plasma Urea 7 - 18 mg/dL Normal No Oct 4 nitrogen informati 2016 5:45 [Mass/vol on in PM ume] in source Serum or data Plasma Calcium 8.5 - mg/dL Normal No Oct 4 [Mass/vol 10.1 informati 2016 5:45 ume] in on in PM Serum or source Plasma data Chloride 98 - 107 mmoL/L Normal No Oct 4 [Moles/vo informati 2017 5:45 lume] in on in PM Serum or source Plasma data Carbon 21.0 - mmoL/L Normal No Oct 4 dioxide, 32.0 informati 2017 5:45 total on in PM [Moles/vo source lume] in data Serum or Plasma Creatinin 0.55 - mg/dL Normal No Oct 4 e 1.02 informati 2016 5:45 [Mass/vol on in PM ume] in source Serum or data Plasma Creatinin 50 - 200 ML/MIN Normal No Oct 4 e renal informati 2016 5:45 clearance on in PM source predicted data by Cockcroft -Gault formula Estimated 59- ML/MIN No REFERENCE Oct 4 informati RANGE: 2017 5:45 glomerula on in >60 PM r source ML/MIN/1. filtratio data 73 SQUARE n rate METERSIf (GF this patient is -A merican, then multiply theresult by 1.210. Globulin 1.3 - 3.2 gm/dL High No Aug 20 [Mass/vol informati 2016 5:45 ume] in on in PM Serum source data Glucose 74 - 106 mg/dL Normal No Aug 20 [Mass/vol informati 2016 5:45 ume] in on in PM Serum or source Plasma data Potassium 3.5 - 5.1 mmoL/L Normal No Aug 20 informati 2016 5:45 [Moles/vo on in PM lume] in source Serum or data Plasma Sodium 136 - 145 mmoL/L Normal No Aug 20 [Moles/vo informati 2016 5:45 lume] in on in PM Serum or source Plasma data Aspartate 15 - 37 U/L Normal No Aug 20 inform2016 5:45 aminotran on in PM sferase source [Enzymati data c activity/ volume] in Serum or Plasma Alanine 12 - 78 U/L Normal No Aug 20 aminotran informati 2016 5:45 sferase on in PM [Enzymati source c data activity/ volume] in Serum or Plasma Protein 6.4 - 8.2 gm/dL Normal No Aug 20 [Mass/vol informati 2016 5:45 ume] in on in PM Serum or source Plasma data Lipase [Enzymatic activity/volume] in Serum or Plasma Observa Value Referen Units Interpr Notes Date tion ce etation Range Lipase 73 - 393 U/L Normal No Aug 20 [Enzymati informati 2016 5:45 c on in PM activity/ source volume] data in Serum or Plasma Hemoglobin & Hematocrit panel in Blood Observa Value Referen Units Interpr Notes Date tion ce etation Range Hematocri 37.0 - % Low No Sep 16 t [Volume 47.0 informati 2016 4:55 on in PM Fraction] source of Blood data Hemoglobi 12.2 - g/dL Low No Sep 16 n 16.2 informati 2016 4:55 [Mass/vol on in PM ume] in source Blood data Urinalysis dipstick W Reflex Microscopic panel in Urine Observa Value Referen Units Interpr Notes Date tion ce etation Range Collected by nurse? Y Hold specimen in OE? N Appeara CLEAR CLEAR No No No Sep 16 nce of informa informa informa 2017 Urine tion in tion in tion in 1:50 PM source source source data data data Bacteri 3+ O No No No Sep 16 a informa informa informa 2017 [Presen tion in tion in tion in 1:50 PM ce] in source source source Urine data data data sedimen t by Light microsc opy Bilirub NEGATIV NEG No No No Sep 16 in E informa informa informa 2017 [Presen tion in tion in tion in 1:50 PM ce] in source source source Urine data data data by Test strip Erythro TRACE-L NEG No No No Sep 16 cytes YSED informa informa informa 2017 [Presen tion in tion in tion in 1:50 PM ce] in source source source Urine data data data Color DK YELLOW No No No Sep 16 of YELLOW informa informa informa 2017 Urine tion in tion in tion in 1:50 PM source source source data data data Glucose NEG No No No Sep 16 [Mass/vol informati informati informati 2017 1:50 ume] in on in on in on in PM Urine by source source source Test data data data strip Ketones NEGATIV NEG mg/dL No No Sep 16 E informa informa 2017 [Presen tion in tion in 1:50 PM ce] in source source Urine data data by Automat ed test strip Mucus NEGATIV NEG No No No Sep 16 [Presen E informa informa informa 2017 ce] in tion in tion in tion in 1:50 PM Urine source source source sedimen data data data t by Light microsc opy Mucus 4+ OCC No No No Sep 16 [Presen informa informa informa 2017 ce] in tion in tion in tion in 1:50 PM Urine source source source sedimen data data data t by Light microsc opy Nitrite NEGATIV NEG No No No Sep 16 E informa informa informa 2017 [Presen tion in tion in tion in 1:50 PM ce] in source source source Urine data data data by Test strip pH of 5.0 - 8.5 No Normal No Sep 16 Urine informati informati 2017 1:50 on in on in PM source source data data Protein NEG mg/dL High No Sep 16 [Mass/vol informati 2017 1:50 ume] in on in PM Urine by source Automated data test strip Specific 1.005 - No Normal No Sep 16 gravity 1.030 informati informati 2017 1:50 of Urine on in on in PM source source data data Epithel 3-5 0 - 5 #/hpf No No Sep 16 ial informa informa 2017 cells.s tion in tion in 1:50 PM quamous source source data data [Presen ce] in Urine sedimen t by Microsc opy high power field Urobili 4.0 NEG E.U./dL No No Sep 16 nogen informa informa 2017 [Presen tion in tion in 1:50 PM ce] in source source Urine data data by Test strip Leukocyte O wbc/hpf No No Sep 16 s informati informati 2017 1:50 [#/volume on in on in PM ] in source source Urine data data Urinalysis dipstick W Reflex Microscopic panel in Urine Observa Value Referen Units Interpr Notes Date tion ce etation Range Collected by nurse? Y Hold specimen in OE? N Appeara CLEAR CLEAR No No No Sep 16 nce of informa informa informa 2017 Urine tion in tion in tion in 1:50 PM source source source data data data Bilirub NEGATIV NEG No No No Sep 16 in E informa informa informa 2017 [Presen tion in tion in tion in 1:50 PM ce] in source source source Urine data data data by Test strip Erythro TRACE-L NEG No No No Sep 16 cytes YSED informa informa informa 2017 [Presen tion in tion in tion in 1:50 PM ce] in source source source Urine data data data Color DK YELLOW No No No Sep 16 of YELLOW informa informa informa 2017 Urine tion in tion in tion in 1:50 PM source source source data data data Glucose NEG No No No Sep 16 [Mass/vol informati informati informati 2017 1:50 ume] in on in on in on in PM Urine by source source source Test data data data strip Ketones NEGATIV NEG mg/dL No No Sep 16 E informa informa 2017 [Presen tion in tion in 1:50 PM ce] in source source Urine data data by Automat ed test strip Mucus NEGATIV NEG No No No Sep 16 [Presen E informa informa informa 2016 ce] in tion in tion in tion in 1:50 PM Urine source source source sedimen data data data t by Light microsc opy Nitrite NEGATIV NEG No No No Sep 16 E informa informa informa 2017 [Presen tion in tion in tion in 1:50 PM ce] in source source source Urine data data data by Test strip pH of 5.0 - 8.5 No Normal No Sep 16 Urine informati informati 2017 1:50 on in on in PM source source data data Protein NEG mg/dL High No Sep 16 [Mass/vol informati 2017 1:50 ume] in on in PM Urine by source Automated data test strip Specific 1.005 - No Normal No Sep 16 gravity 1.030 informati informati 2017 1:50 of Urine on in on in PM source source data data Urobili 4.0 NEG E.U./dL No No Sep 16 nogen informa informa 2016 [Presen tion in tion in 1:50 PM ce] in source source Urine data data by Test strip Hemoglobin & Hematocrit panel in Blood Observa Value Referen Units Interpr Notes Date ti ce etation Range Hematocri 37.0 - % Low No Sep 16 t [Volume 47.0 informati 2017 1:08 on in PM Fraction] source of Blood data Hemoglobi 12.2 - g/dL Low No Sep 16 n 16.2 informati 2017 1:08 [Mass/vol on in PM ume] in source Blood data Hematocrit [Volume Fraction] of Blood Observa Value Referen Units Interpr Notes Date ti ce etation Range Hematocri 37.0 - % Low No Sep 16 t [Volume 47.0 informati 2017 6:52 on in AM Fraction] source of Blood data Hemoglobin [Mass/volume] in Blood Observa Value Referen Units Interpr Notes Date ti ce etation Range Hemoglobi 12.2 - g/dL Low No Sep 16 n 16.2 informati 2017 6:52 [Mass/vol on in AM ume] in source Blood data Hemoglobin & Hematocrit panel in Blood Observa Value Referen Units Interpr Notes Date ti ce etation Range Hematocri 37.0 - % Low No Sep 15 t [Volume 47.0 informati 2016 on in 10:12 AM Fraction] source of Blood data Hemoglobi 12.2 - g/dL Low No Sep 15 n 16.2 informati 2016 [Mass/vol on in 10:12 AM ume] in source Blood data Hemoglobin & Hematocrit panel in Blood Observa Value Referen Units Interpr Notes Date tion ce etation Range COMMENTS TO DIRECTOR OF ROOMS: 1 HOUR POST [facility] Hematocri 37.0 - % Low No Sep 15 t [Volume 47.0 informati 2016 5:30 on in AM Fraction] source of Blood data Hemoglobi 12.2 - g/dL Low No Sep 15 n 16.2 informati 2017 5:30 [Mass/vol on in AM ume] in source Blood data Blood product special preparation [Type] Observa Value Referen Units Interpr Notes Date tion ce etation Range Blood BLOOD No No No BLOOD Sep 15 product UNIT informa informa informa UNIT # 2017 RELEASE tion in in in : [id number] 3:05 AM special source source source 17 data data data [id number] prepara O tion POSRELE [Type] ASED 7 [place] Blood product special preparation [Type] Observa Value Referen Units Interpr Notes Date tion ce etation Range Blood BLOOD No No No BLOOD Sep 15 product UNIT informa informa informa UNIT # 2017 RELEASE tion in in in : [id number] 2:15 AM special source source source 17 data data data [id number] prepara O tion POSRELE [Type] ASED 7 [place] Blood type & Crossmatch panel in Blood Observa Value Referen Units Interpr Notes Date tion ce etation Range Major COMPAT No No No No Sep 15 crossma informa informa informa informa 2017 tch tion in tion in tion in tion in 1:10 AM [interp source source source source retatio data data data data n] Major COMPAT No No No No Sep 15 crossma informa informa informa informa 2017 tch tion in tion in tion in tion in 1:10 AM [interp source source source source retatio data data data data n] by Immedia te spin Blood type & Crossmatch panel in Blood Observa Value Referen Units Interpr Notes Date ti ce etation Range Major COMPAT No No No No Sep 15 crossma informa informa informa informa 2017 tch tion in tion in tion in tion in 1:10 AM [interp source source source source retatio data data data data n] Major COMPAT No No No No Sep 15 crossma informa informa informa informa 2017 tch tion in tion in tion in tion in 1:10 AM [interp source source source source retatio data data data data n] by Immedia te spin Blood type & Indirect antibody screen panel in Blood Observa Value Referen Units Interpr Notes Date ti ce etation Range Blood NEGATIV NEGATIV No No No Sep 15 group E E informa informa informa 2017 antibod tion in tion in tion in 1:00 AM y source source source screen data data data [Presen ce] in Serum or Plasma Rh POSITIV No No No No Sep 15 [Type] E informa informa informa informa 2017 in tion in tion in tion in tion in 1:00 AM Blood source source source source data data data data ABO O No No No No Sep 15 group informa informa informa informa 2017 [Type] tion in tion in tion in tion in 1:00 AM in source source source source Blood data data data data Hematocrit [Volume Fraction] of Blood Observa Value Referen Units Interpr Notes ce etation Range Hematocri 37.0 - % Low alert Aug 01 t [Volume 47.0 2017 CRITICAL 12:35 AM Fraction] RESULTS of Blood RESU LTS CALLED TO: 08/01/17 0045 Rachael [place] ictoria Hemoglobin [Mass/volume] in Blood Observa Value Referen Units Interpr Notes Date ti ce etation Range Hemoglobi 12.2 - g/dL Low alert Aug 01 n 16.2 2016 [Mass/vol CRITICAL 12:35 AM ume] in RESULTS Blood RESU LTS CALLED TO: 08/01/17 0045 Rachael [facility] Hemoglobin & Hematocrit panel in Blood Observa Value Referen Units Interpr Notes Date tion ce etation Range Hematocri 37.0 - % Low No Sep 14 t [Volume 47.0 informati 2017 on in 10:43 AM Fraction] source of Blood data Hemoglobi 12.2 - g/dL Low No Sep 14 n 16.2 informati 2016 [Mass/vol on in 10:43 AM ume] in source Blood data Urinalysis dipstick W Reflex Microscopic panel in Urine Observa Value Referen Units Interpr Notes Date tion ce etation Range COMMENTS TO DIRECTOR OF ROOMS: GLOIRA CATHETER INSERTION Collected by nurse? Y Hold specimen in OE? N Appeara CLEAR CLEAR No No No Sep 14 nce of informa informa informa 2017 Urine tion in tion in tion in 7:30 AM source source source data data data Bacteri TRACE O No No No Sep 14 a informa informa informa 2016 [Presen tion in tion in tion in 7:30 AM ce] in source source source Urine data data data sedimen t by Light microsc opy Bilirub NEGATIV NEG No No No Sep 14 in E informa informa informa 2017 [Presen tion in tion in tion in 7:30 AM ce] in source source source Urine data data data by Test strip Erythro NEGATIV NEG No No No Sep 14 cytes E informa informa informa 2017 [Presen tion in tion in tion in 7:30 AM ce] in source source source Urine data data data Color YELLOW YELLOW No No No Sep 14 of informa informa informa 2017 Urine tion in tion in tion in 7:30 AM source source source data data data Glucose NEG No No No Sep 14 [Mass/vol informati informati informati 2017 7:30 ume] in on in on in on in AM Urine by source source source Test data data data strip Ketones NEGATIV NEG mg/dL No No Sep 14 E informa informa 2017 [Presen tion in tion in 7:30 AM ce] in source source Urine data data by Automat ed test strip Mucus NEGATIV NEG No No No Sep 14 [Presen E informa informa informa 2016 ce] in tion in tion in tion in 7:30 AM Urine source source source sedimen data data data t by Light microsc opy Nitrite NEGATIV NEG No No No Sep 14 E informa informa informa 2017 [Presen tion in tion in tion in 7:30 AM ce] in source source source Urine data data data by Test strip pH of 5.0 - 8.5 No Normal No Sep 14 Urine informati informati 2017 7:30 on in on in AM source source data data Protein NEG mg/dL No No Sep 14 [Mass/vol informati informati 2017 7:30 ume] in on in on in AM Urine by source source Automated data data test strip Erythro NONE 0 rbc/hpf No No Sep 14 cytes informa informa 2017 [Presen tion in tion in 7:30 AM ce] in source source Urine data data sedimen t by Light microsc opy Specific 1.005 - No Normal No Sep 14 gravity 1.030 informati informati 2017 7:30 of Urine on in on in AM source source data data Epithel OCC 0 - 5 #/hpf No No Sep 14 ial informa informa 2017 cells.s tion in tion in 7:30 AM quamous source source data data [Presen ce] in Urine sedimen t by Microsc opy high power field Urobili 0.2 NEG E.U./dL No No Sep 14 nogen informa informa 2017 [Presen tion in tion in 7:30 AM ce] in source source Urine data data by Test strip Leukocyte O wbc/hpf No No Sep 14 s informati informati 2017 7:30 [#/volume on in on in AM ] in source source Urine data data Urinalysis dipstick W Reflex Microscopic panel in Urine Observa Value Referen Units Interpr Notes Date tion ce etation Range COMMENTS TO DIRECTOR OF ROOMS: GLORIA CATHETER INSERTION Collected by nurse? Y Hold specimen in OE? N Appeara CLEAR CLEAR No No No Sep 14 nce of informa informa informa 2017 Urine tion in tion in tion in 7:30 AM source source source data data data Bilirub NEGATIV NEG No No No Sep 14 in E informa informa informa 2017 [Presen tion in tion in tion in 7:30 AM ce] in source source source Urine data data data by Test strip Erythro NEGATIV NEG No No No Sep 14 cytes E informa informa informa 2017 [Presen tion in tion in tion in 7:30 AM ce] in source source source Urine data data data Color YELLOW YELLOW No No No Sep 14 of informa informa informa 2017 Urine tion in tion in tion in 7:30 AM source source source data data data Glucose NEG No No No Sep 14 [Mass/vol informati informati informati 2017 7:30 ume] in on in on in on in AM Urine by source source source Test data data data strip Ketones NEGATIV NEG mg/dL No No Sep 14 E informa informa 2017 [Presen tion in tion in 7:30 AM ce] in source source Urine data data by Automat ed test strip Mucus NEGATIV NEG No No No Sep 14 [Presen E informa informa informa 2016 ce] in tion in tion in tion in 7:30 AM Urine source source source sedimen data data data t by Light microsc opy Nitrite NEGATIV NEG No No No Sep 14 E informa informa informa 2016 [Presen tion in tion in tion in 7:30 AM ce] in source source source Urine data data data by Test strip pH of 5.0 - 8.5 No Normal No Sep 14 Urine informati informati 2017 7:30 on in on in AM source source data data Protein NEG mg/dL No No Sep 14 [Mass/vol informati informati 2017 7:30 ume] in on in on in AM Urine by source source Automated data data test strip Specific 1.005 - No Normal No Sep 14 gravity 1.030 informati informati 2017 7:30 of Urine on in on in AM source source data data Urobili 0.2 NEG E.U./dL No No Sep 14 nogen informa informa 2017 [Presen tion in tion in 7:30 AM ce] in source source Urine data data by Test strip Choriogonadotropin [Units/volume] in Serum or Plasma Observa Value Referen Units Interpr Notes Date tion ce etation Range Choriogon NEG No No No Sep 11 adotropin informati informati informati 2017 9:26 on in on in on in AM [Units/vo source source source lume] in data data data Serum or Plasma Comprehensive metabolic 2000 panel in Serum or Plasma Observa Value Referen Units Interpr Notes Date tion ce etation Range Albumin/G 1.1 - 1.8 No Normal No Sep 11 lobulin informati informati 2017 9:26 [Mass on in on in AM ratio] in source source Serum or data data Plasma Albumin 3.4 - 5.0 gm/dL Normal No Sep 11 [Mass/vol informati 2017 9:26 ume] in on in AM Serum or source Plasma data Alkaline 46 - 116 U/L Normal No Sep 11 phosphata informati 2017 9:26 se on in AM [Enzymati source c data activity/ volume] in Serum or Plasma Bilirubin 0.2 - 1.0 mg/dL Normal No Sep 11 .total informati 2017 9:26 [Mass/vol on in AM ume] in source Serum or data Plasma Urea 7 - 18 mg/dL Normal No Sep 11 nitrogen informati 2017 9:26 [Mass/vol on in AM ume] in source Serum or data Plasma Calcium 8.5 - mg/dL Normal No Sep 11 [Mass/vol 10.1 informati 2017 9:26 ume] in on in AM Serum or source Plasma data Chloride 98 - 107 mmoL/L Normal No Sep 11 [Moles/vo informati 2017 9:26 lume] in on in AM Serum or source Plasma data Carbon 21.0 - mmoL/L Normal No Sep 11 dioxide, 32.0 informati 2017 9:26 total on in AM [Moles/vo source lume] in data Serum or Plasma Creatinin 0.55 - mg/dL Normal No Sep 11 e 1.02 informati 2017 9:26 [Mass/vol on in AM ume] in source Serum or data Plasma Estimated 59- ML/MIN No REFERENCE Sep 11 informati RANGE: 2017 9:26 glomerula on in >60 AM r source ML/MIN/1. filtratio data 73 SQUARE n rate METERSIf (GF this patient is -A merican, then multiply theresult by 1.210. Globulin 1.3 - 3.2 gm/dL High No Sep 11 [Mass/vol informati 2017 9:26 ume] in on in AM Serum source data Glucose 74 - 106 mg/dL Normal No Sep 11 [Mass/vol informati 2016 9:26 ume] in on in AM Serum or source Plasma data Potassium 3.5 - 5.1 mmoL/L Normal No Sep 11 informati 2017 9:26 [Moles/vo on in AM lume] in source Serum or data Plasma Sodium 136 - 145 mmoL/L Normal No Sep 11 [Moles/vo informati 2016 9:26 lume] in on in AM Serum or source Plasma data Aspartate 15 - 37 U/L Normal No Sep 11 informati 2017 9:26 aminotran on in AM sferase source [Enzymati data c activity/ volume] in Serum or Plasma Alanine 12 - 78 U/L Normal No Sep 11 aminotran informati 2016 9:26 sferase on in AM [Enzymati source c data activity/ volume] in Serum or Plasma Protein 6.4 - 8.2 gm/dL Normal No Sep 11 [Mass/vol informati 2016 9:26 ume] in on in AM Serum or source Plasma data Urinalysis dipstick W Reflex Microscopic panel in Urine Observa Value Referen Units Interpr Notes Date tion ce etation Range Appeara SL CLEAR No No No Sep 11 nce of CLOUDY informa informa informa 2016 Urine tion in tion in tion in 9:26 AM source source source data data data Bacteri 2+ O No No No Sep 11 a informa informa informa 2016 [Presen tion in tion in tion in 9:26 AM ce] in source source source Urine data data data sedimen t by Light microsc opy Bilirub NEGATIV NEG No No No Sep 11 in E informa informa informa 2016 [Presen tion in tion in tion in 9:26 AM ce] in source source source Urine data data data by Test strip Erythro NEGATIV NEG No No No Sep 11 cytes E informa informa informa 2016 [Presen tion in tion in tion in 9:26 AM ce] in source source source Urine data data data Color DK YELLOW No No No Sep 11 of YELLOW informa informa informa 2017 Urine tion in tion in tion in 9:26 AM source source source data data data Glucose NEG No No No Sep 11 [Mass/vol informati informati informati 2017 9:26 ume] in on in on in on in AM Urine by source source source Test data data data strip Ketones TRACE NEG mg/dL Abnorma No Sep 11 l informa 2016 [Presen tion in 9:26 AM ce] in source Urine data by Automat ed test strip Mucus NEGATIV NEG No No No Sep 11 [Presen E informa informa informa 2016 ce] in tion in tion in tion in 9:26 AM Urine source source source sedimen data data data t by Light microsc opy Nitrite NEGATIV NEG No No No Sep 11 E informa informa informa 2016 [Presen tion in tion in tion in 9:26 AM ce] in source source source Urine data data data by Test strip pH of 5.0 - 8.5 No Normal No Sep 11 Urine informati informati 2017 9:26 on in on in AM source source data data Protein NEG mg/dL No No Sep 11 [Mass/vol informati informati 2017 9:26 ume] in on in on in AM Urine by source source Automated data data test strip Erythro NONE 0 rbc/hpf No No Sep 11 cytes informa informa 2016 [Presen tion in tion in 9:26 AM ce] in source source Urine data data sedimen t by Light microsc opy Specific 1.005 - No Normal No Sep 11 gravity 1.030 informati informati 2017 9:26 of Urine on in on in AM source source data data Epithel 20-50 0 - 5 #/hpf No No Sep 11 ial informa informa 2017 cells.s tion in tion in 9:26 AM quamous source source data data [Presen ce] in Urine sedimen t by Microsc opy high power field Urobili 1.0 NEG E.U./dL No No Sep 11 nogen informa informa 2016 [Presen tion in tion in 9:26 AM ce] in source source Urine data data by Test strip Leukocyte O wbc/hpf No No Sep 11 s informati informati 2017 9:26 [#/volume on in on in AM ] in source source Urine data data CBC W Auto Differential panel in Blood Observa Value Referen Units Interpr Notes Date tion ce etation Range Basophils 0 - 0.2 K/MM3 Normal No Sep 11 informati 2017 9:26 [#/volume on in AM ] in source Blood by data Automated count Basophils 0.1 - 2.0 % Normal No Sep 11 /100 informati 2017 9:26 leukocyte on in AM s in source Blood by data Automated count Eosinophi 0.0 - 0.4 K/mm3 Normal No Sep 11 ls informati 2017 9:26 [#/volume on in AM ] in source Blood by data Automated count Eosinophi 0.1 - % Normal No Sep 11 ls/100 12.0 informati 2017 9:26 leukocyte on in AM s in source Blood by data Automated count Granulocy 1.8 - 7.8 K/mm3 Normal No Sep 11 joyce informati 2016 9:26 [#/volume on in AM ] in source Blood by data Automated count Granulocy 37.0 - % Normal No Sep 11 joyce/100 80.0 informati 2017 9:26 leukocyte on in AM s in source Blood by data Automated count Hematocri 37.0 - % Normal No Sep 11 t [Volume 47.0 informati 2017 9:26 on in AM Fraction] source of Blood data Hemoglobi 12.2 - g/dL Normal No Sep 11 n 16.2 informati 2017 9:26 [Mass/vol on in AM ume] in source Blood data Lymphocyt 0.7 - 4.5 K/mm3 Normal No Sep 11 es informati 2017 9:26 [#/volume on in AM ] in source Unspecifi data ed specimen by Automated count Lymphocyt 10 - 50.0 % Normal No Sep 11 es informati 2017 9:26 [#/volume on in AM ] in source Unspecifi data ed specimen by Automated count Erythrocy 27 - 31.2 pg Normal No Sep 11 te mean informati 2017 9:26 corpuscul on in AM ar source hemoglobi data n [Entitic mass] Erythrocy 31.8 - g/dl Normal No Sep 11 te mean 35.4 informati 2017 9:26 corpuscul on in AM ar source hemoglobi data n concentra tion [Mass/vol ume] by Automated count Erythrocy 82.2 - fl Normal No Sep 11 te mean 97.8 informati 2017 9:26 corpuscul on in AM ar volume source [Entitic data volume] by Automated count Monocytes 0.1 - 1.0 K/mm3 Normal No Sep 11 informati 2017 9:26 [#/volume on in AM ] in source Blood by data Automated count Monocytes 1.7 - 9.3 % Normal No Sep 11 /100 informati 2016 9:26 leukocyte on in AM s in source Blood by data Automated count Platelet 7.4 - fl High No Sep 11 mean 10.4 informati 2017 9:26 volume on in AM [Entitic source volume] data in Blood by Automated count Platelets 142 - 424 K/mm3 Normal No Sep 11 informati 2017 9:26 [#/volume on in AM ] in source Blood data Erythrocy 4.2 - 5.4 M/mm3 Normal No Sep 11 joyce informati 2017 9:26 [#/volume on in AM ] in source Amniotic data fluid Erythrocy 11.5 - % Normal No Sep 11 te 17.5 informati 2017 9:26 distribut on in AM ion width source [Entitic data volume] by Automated count Leukocyte 4.8 - K/MM3 Normal No Sep 11 s 10.8 informati 2017 9:26 [#/volume on in AM ] in source Blood data Urinalysis dipstick W Reflex Microscopic panel in Urine Observa Value Referen Units Interpr Notes Date tion ce etation Range Appeara SL CLEAR No No No Sep 11 nce of CLOUDY informa informa informa 2017 Urine tion in tion in tion in 9:26 AM source source source data data data Bilirub NEGATIV NEG No No No Sep 11 in E informa informa informa 2017 [Presen tion in tion in tion in 9:26 AM ce] in source source source Urine data data data by Test strip Erythro NEGATIV NEG No No No Sep 11 cytes E informa informa informa 2016 [Presen tion in tion in tion in 9:26 AM ce] in source source source Urine data data data Color DK YELLOW No No No Sep 11 of YELLOW informa informa informa 2017 Urine tion in tion in tion in 9:26 AM source source source data data data Glucose NEG No No No Sep 11 [Mass/vol informati informati informati 2017 9:26 ume] in on in on in on in AM Urine by source source source Test data data data strip Ketones TRACE NEG mg/dL Abnorma No Sep 11 l informa 2016 [Presen tion in 9:26 AM ce] in source Urine data by Automat ed test strip Mucus NEGATIV NEG No No No Sep 11 [Presen E informa informa informa 2016 ce] in tion in tion in tion in 9:26 AM Urine source source source sedimen data data data t by Light microsc opy Nitrite NEGATIV NEG No No No Sep 11 E informa informa informa 2016 [Presen tion in tion in tion in 9:26 AM ce] in source source source Urine data data data by Test strip pH of 5.0 - 8.5 No Normal No Sep 11 Urine informati informati 2017 9:26 on in on in AM source source data data Protein NEG mg/dL No No Sep 11 [Mass/vol informati informati 2016 9:26 ume] in on in on in AM Urine by source source Automated data data test strip Specific 1.005 - No Normal No Sep 11 gravity 1.030 informati informati 2016 9:26 of Urine on in on in AM source source data data Urobili 1.0 NEG E.U./dL No No Sep 11 nogen informa informa 2016 [Presen tion in tion in 9:26 AM ce] in source source Urine data data by Test strip CHLAMYDIA AND GONORRHEA TESTING Observa Value Referen Units Interpr Notes Date tion ce etation Range COLLECT NA No No No No May 13 OR informa informa informa informa 2013 tion in tion in tion in tion in 2:30 PM source source source source data data data data ETHNICI WHITE, No No No No May 13 TY NON-HIS informa informa informa informa 2013 PANIC tion in tion in tion in tion in 2:30 PM source source source source data data data data KIT 9=-30-1 No No No No May 13 EXPIRAT 3 informa informa informa informa 2013 ION tion in tion in tion in tion in 2:30 PM DATE source source source source data data data data SYMPTOM NO No No No No May 13 S informa informa informa informa 2013 tion in tion in tion in tion in 2:30 PM source source source source data data data data REASON VOLUNTE No No No No May 13 FOR ER/MEDI informa informa informa informa 2013 REQUEST MARU tion in tion in tion in tion in 2:30 PM PROBLEM source source source source data data data data SPECIME URINE No No No No May 13 N informa informa informa informa 2013 SOURCE tion in tion in tion in tion in 2:30 PM source source source source data data data data PREGNAN NO No No No No May 13 T informa informa informa informa 2013 tion in tion in tion in tion in 2:30 PM source source source source data data data data CHART NA No No No No May 13 NUMBER informa informa informa informa 2013 tion in tion in tion in tion in 2:30 PM source source source source data data data data Chlamyd NEGATIV No No No NEGATIV May 13 ia E informa informa informa E 2013 trachom tion in tion in tion in RESULT= 2:30 PM atis source source source WITHIN rRNA data data data NORMAL [Presen ce] in LIMITSP Unspeci OSITIVE fied specime RESULT= n by Probe & ABNORMA target LEQUIVO MARU amplifi RESULT= cation method INDETER MINATEU NSATISF ACTORY RESULT= INVALID Neisser NEGATIV No No No NEGATIV May 13 ia E informa informa informa E 2013 gonorrh tion in tion in tion in RESULT= 2:30 PM oeae source source source WITHIN rRNA data data data NORMAL [Presen ce] in LIMITSP Unspeci OSITIVE fied specime RESULT= n by Probe & ABNORMA target LEQUIVO MARU amplifi RESULT= cation method INDETER MINATEU NSATISF ACTORY RESULT= INVALID THE APTIMA COMBO 2 ASSAY IS NOT INTENDE D FOR THE EVALUAT ION OF SUSPECT EDSEXUA L ABUSE OR FOR OTHER MEDICO- LEGAL INDICAT IONS. FOR THOSE PATIENT S FORWHOM A FALSE POSITIV E RESULT MAY HAVE ADVERSE PSYCHO- SOCIAL IMPACT, THE [facility] MMENDS RETESTI NG.\.br \This report contain s patient informa tion that must be protect ed in accorda nce with the Health Insuran ce Portabi lity and Account ability Act. CHLAMYDIA AND GONORRHEA TESTING Observa Value Referen Units Interpr Notes Date tion ce etation Range COLLECT NA No No No No May 13 OR informa informa informa informa 2013 tion in tion in tion in tion in 2:30 PM source source source source data data data data ETHNICI WHITE, No No No No May 13 TY NON-HIS informa informa informa informa 2013 PANIC tion in tion in tion in tion in 2:30 PM source source source source data data data data KIT 9=-30-1 No No No No May 13 EXPIRAT 3 informa informa informa informa 2013 ION tion in tion in tion in tion in 2:30 PM DATE source source source source data data data data SYMPTOM NO No No No No May 13 S informa informa informa informa 2013 tion in tion in tion in tion in 2:30 PM source source source source data data data data REASON VOLUNTE No No No No May 13 FOR ER/MEDI informa informa informa informa 2013 REQUEST MARU tion in tion in tion in tion in 2:30 PM PROBLEM source source source source data data data data SPECIME URINE No No No No May 13 N informa informa informa informa 2013 SOURCE tion in tion in tion in tion in 2:30 PM source source source source data data data data PREGNAN NO No No No No May 13 T informa informa informa informa 2013 tion in tion in tion in tion in 2:30 PM source source source source data data data data CHART NA No No No No May 13 NUMBER informa informa informa informa 2013 tion in tion in tion in tion in 2:30 PM source source source source data data data data Chlamyd NEGATIV No No No NEGATIV May 13 ia E informa informa informa E 2013 trachom tion in tion in tion in RESULT= 2:30 PM atis source source source WITHIN rRNA data data data NORMAL [Presen ce] in LIMITSP Unspeci OSITIVE fied specime RESULT= n by Probe & ABNORMA target LEQUIVO MARU amplifi RESULT= cation method INDETER MINATEU NSATISF ACTORY RESULT= INVALID Neisser NEGATIV No No No NEGATIV May 13 ia E informa informa informa E 2013 gonorrh tion in tion in tion in RESULT= 2:30 PM oeae source source source WITHIN rRNA data data data NORMAL [Presen ce] in LIMITSP Unspeci OSITIVE fied specime RESULT= n by Probe & ABNORMA target LEQUIVO MARU amplifi RESULT= cation method INDETER MINATEU NSATISF ACTORY RESULT= INVALID THE APTIMA COMBO 2 ASSAY IS NOT INTENDE D FOR THE EVALUAT ION OF SUSPECT EDSEXUA L ABUSE OR FOR OTHER MEDICO- LEGAL INDICAT IONS. FOR THOSE PATIENT S FORWHOM A FALSE POSITIV E RESULT MAY HAVE ADVERSE PSYCHO- SOCIAL IMPACT, [facility] MMENDS RETESTI NG.\.br \This report contain s patient informa tion that must be protect ed in [facility] with the Health Insuran ce Portabi lity and Account ability Act. Treponema pallidum IgG Ab [Presence] in Serum by Immunoassay Observa Value Referen Units Interpr Notes Date tion ce etation Range COLLECT NA No No No No Apr 29 OR informa informa informa informa 2013 tion in tion in tion in tion in 4:00 PM source source source source data data data data ETHNICI WHITE No No No No Apr 29 TY informa informa informa informa 2013 tion in tion in tion in tion in 4:00 PM source source source source data data data data PURPOSE DIAGNOS No No No No Apr 29 OF TIC informa informa informa informa 2013 EXAM tion in tion in tion in tion in 4:00 PM source source source source data data data data SPECIME BLOOD No No No No Apr 29 N informa informa informa informa 2013 SOURCE tion in tion in tion in tion in 4:00 PM source source source source data data data data CHART NA No No No No Apr 29 NUMBER informa informa informa informa 2013 tion in tion in tion in tion in 4:00 PM source source source source data data data data Trepone NON-JASMIN No No No METHOD Apr [address] informa informa informa OF 2013 pallidu tion in tion in tion in ANALYSI 4:00 PM m IgG source source source S: Ab data data data EIANORM [Presen AL ce] in RANGE: Serum NON-JASMIN by CTIVE\. Immunoa br\This ssay report contain s patient informa tion that must be protect ed in [facility] with the Health Insuran ce Portabi lity and Account ability Act. Treponema pallidum IgG Ab [Presence] in Serum by Immunoassay Observa Value Referen Units Interpr Notes Date tion ce etation Range COLLECT NA No No No No Apr 29 OR informa informa informa informa 2013 tion in tion in tion in tion in 4:00 PM source source source source data data data data ETHNICI WHITE No No No No Apr 29 TY informa informa informa informa 2013 tion in tion in tion in tion in 4:00 PM source source source source data data data data PURPOSE DIAGNOS No No No No Apr 29 OF TIC informa informa informa informa 2013 EXAM tion in tion in tion in tion in 4:00 PM source source source source data data data data SPECIME BLOOD No No No No Apr 29 N informa informa informa informa 2013 SOURCE tion in tion in tion in tion in 4:00 PM source source source source data data data data CHART NA No No No No Apr 29 NUMBER informa informa informa informa 2013 tion in tion in tion in tion in 4:00 PM source source source source data data data data Trepone Pending No No No \.br\Apr 29 ma informa informa informa is 2013 pallidu tion in tion in tion in report 4:00 PM m IgG source source source contain Ab data data data s [Presen patient ce] in Serum informa by tion Immunoa that ssay must be protect ed in accorda nce with the Health Insuran ce Portabi lity and Account ability Act.
--- OUTSIDE RECORDS SUMMARY | 2017-08-26 05:13 | External Medical Summary Rpt ---
[...] Date tion ce etation Range COMMENTS TO INSPECTOR MULTIFOCAL LENS: 1 HOUR POST HH Hematocri 37.0 - [...] source source source 17 data data data [id number] prepara O tion POSRELE [Type] ASED 7 [place] Blood product special preparation [Type] Observa Value Referen Units Interpr Notes Date tion ce etation Range Blood BLOOD No No No BLOOD Sep 15 product UNIT informa informa informa UNIT # 2017 RELEASE tion in in in : W0382 2:15 AM special source source source 17 data data data [id number] prepara O tion POSRELE [Type] ASED 7 [...] Date tion ce etation Range COMMENTS TO INSPECTOR MULTIFOCAL LENS: GLORIA CATHETER INSERTION Collected by nurse? Y [...] Date tion ce etation Range COMMENTS TO INSPECTOR MULTIFOCAL LENS: GLORIA CATHETER INSERTION Collected by nurse? Y [...] MAY HAVE ADVERSE PSYCHO- SOCIAL IMPACT, [facility] MM[facility] NG.\.br \This report contain s patient informa tion that must be protect ed [facility] with the Health Insuran ce Portabi lity [...] tion that must be protect ed in [facility] with the Health Insuran ce Portabi lity [...]
== END 2017-08-04 11:30 | disposition home or self-care (01) | DRG 742 ==
LOC: SDC 06:09 → OB 06:13 → SDC 06:13 → OB 11:00
PROVIDERS: Obstetrics & Gynecology
PROC: 0UT0FZZ Resection of Right Ovary, Via Natural or Artificial Opening With Percutaneous Endoscopic Assistance (ICD-10-PCS; 2017-08-01)
PROC: 0UT9FZZ Resection of Uterus, Via Natural or Artificial Opening With Percutaneous Endoscopic Assistance (ICD-10-PCS; principal; 2017-08-01 01:15)
PROC: 0W3G0ZZ Control Bleeding in Peritoneal Cavity, Open Approach (ICD-10-PCS; 2017-08-02)
DX: N93.8 Other specified abnormal uterine and vaginal bleeding (principal); K66.1 Hemoperitoneum; K56.7 Ileus, unspecified; T81.72XA Complication of vein following a procedure, not elsewhere classified, initial encounter; N83.201 Unspecified ovarian cyst, right side; R10.2 Pelvic and perineal pain
CPT/HCPCS: G0378; J0131; J0330; J2405; J2710; P9016

== ENCOUNTER 2017-08-20 17:05 | Emergency (ER) | payer MEDICAID ==
[~2017-08-20] VITALS: Ht 170.2 cm; Wt 81.2 kg
[~2017-08-20 17:05] MED LIST changes: +HYDROMORPHONE2 MG PO
[2017-08-20 17:34] LABS: URINE BLOOD NEGATIVE (NEG)
[2017-08-20 17:37] LABS: URINE BILIRUBIN - DIPSTICK 1+ (NEG)
--- NOTE | 2017-08-20 17:44 | Emergency Room Report ---
History of Present Illness Time Seen by [id number] Presenting Problem in Triage Pt arrived:Walked Presenting Problem:PT REPORTS PAIN ON KACY SIDES OF LOWER ABD X4 DAYS. PT REPORTS HAD LAP ASSISTED VAGINAL HYSTERECTOMY O 07/31/17, PT HAD TO GO BACK INTO SURGERY THAT NIGHT R/T BLEEDING. PT REPORTS PAIN WORSENS WITH MOVEMENT, STATES PAIN IS SQUEEZING IN NATURE WITH MOVEMENT. 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 N Clinical Suspician of Infection? N Mental Status: 1 - Regular (Normal Baseline) Sepsis Risk:Low Sepsis Risk Have you (or family members/close friends) recently traveled outside the [place]? N If Yes, where/when: Have you had exposure to infectious disease within the past month? N TB? Other? Specify: Patient states that she is status post a hysterectomy on the where a club came loose and he had a go back in due to internal bleeding. She states she has developed abdominal pain over the past day had moderate in severity and states it's a squeezing type of pain no radiation to the back it's in her bilateral lower abdomen. Denies any nausea vomiting diarrhea she states she did have lightheadedness earlier today she denies any fevers or chills she states she does have some burning with urination. ALLERGIES Coded Allergies: No Known Allergies (08/01/17) Home Medications Discontinued Scripts Hydromorphone Hcl (Hydromorphone) 2 MG PO Q4HP PRN MODERATE TO SEVERE PAIN #40 TAB Prov: 08/04/17 DC: 08/19/17 0000 History Medical History General CAD? No Angina: No MD: No Hypertension? No Hyperlipidemia? No CHF? No DVT? No PE? No COPD? No Asthma? No Anemia? No GERD? No Gastric ulcers? No GI Bleed? No Hernia? No Thyroid Problems? No Hypothyroidism? No CVA? No Seizures? Yes Diabetes? No Insulin Dependent: No Insulin Pump: No Home FSBS? No Renal Insuffiency? No End Stage Renal Disease? No UTI? Yes Stones? No BPH? No GB Disease: No Nephritic Syndrome? No Asplenia? No Hepatitis? No Sickle Cell Disease? No Arthritis? No Migraines? No Cataracts? No Glaucoma? No MRSA? No HIV? No TB? No Anxiety? No Depression? No Cancer? No More? No Immunization Hx DT/Tetanus < 1 YR AGO Flu NEVER Pneumonia Never Had Surgical Hx Previous Surgery?Y C SECTION X 2 Tubal Ligation Exploratory Laparoscopy LAP ASSIST VAG HYSTERECT EMERGENT LAP JAIL KEEPER Hx LMP 2 Months Ago Family History Family Hx Diabetes Yes CAD Yes Hypertension Yes Hyperlipidemia Yes Cancer Yes TB No Social History Smoking Hx Smoker: Current Every Day Smoker Tobacco: Yes Type Cigarettes Packs/day 1 1/2 - 2 Packs Alcohol Alcohol: No Review of Systems All Other Systems Reviewed and Negative Physical Exam Vital Signs Vital Signs Date Time Temp Pulse Resp B/P Pulse O2 O2 Flow FiO2 Ox Delivery Rate 08/20 1845 81 18 122/70 96 08/20 1710 97.6 84 18 124/72 98 General Appearance: Nontoxic Head: Normocephalic, without obvious abnormality, atraumatic. Eyes: conjunctiva/corneas clear ENT: Mucous membranes moist. Neck: No jugular venous distention. Cardiac: regular rate and rhythm Lungs: Clear to auscultation bilaterally Abdomen: bilateral lower quadrant tenderness, it is clean dry and intact, Nondistended, positive bowel sounds, no rebound : No CVA tenderness Extremities: no edema Musculoskeletal: No chest wall tenderness Skin: No rashes or lesions to exposed skin. Neurologic: Alert. No gross focal deficits Psychiatric: Normal affect (Josué CEBALLOS, Trey) General Appearance normal appearance Respiratory Status No: respiratory distress. Cardiovascular normal exam Neurologic alert Medical Decision Making LABS/Meds/Orders Pt receiving controlled substance in ED? No Comment [address] [facility] [place] hysterectomy with need for repeat lap that day for bleeding. [facility] labs, desires dc home, states is unremarkable CT impression. they will followup. Results/Orders Laboratory Tests 08/20/17 174: Lipase 177 08/20/171744: Sodium 138, Potassium 3.9, Chloride 103, Carbon Dioxide 26, BUN 8, Creatinine 0.6, Estimated Creat Clear 181, Estimated GFR (MDRD) 120, Glucose 93, Calcium 8.8, Total Bilirubin 0.3, AST 16, ALT 30, Alkaline Phosphatase 96, Total Protein 7.8, Albumin 3.9, Globulin 3.9 H, Albumin/Globulin Ratio 1.0 L, PT 10.3, INR 0.95, APTT 25.9, WBC 10.5, RBC 4.03 L, Hgb 11.6 L, Hct 35.7 L, MCV 88.6, RDW 13.9, Plt Count 325, MPV 11.1 H, Gran % 65.6, Gran # 6.9, Lymphocytes % 28.0, Monocytes % 3.5, Eosinophils % 2.4, Basophils % 0.5, Lymphocytes # 2.9, Monocytes # 0.4, Eosinophils # 0.3, Basophils # 0.1, PUBS MCHC 32.2, MCH 28.6 08/20/17 1720: Urine Color YELLOW, Urine Appearance SL CLOUDY, Urine pH 6.0, Ur Specific [place] >= 1.030, Urine Protein NEGATIVE, Urine Ketones NEGATIVE, Urine Blood NEGATIVE, Urine Nitrate NEGATIVE, Urine Bilirubin 1+ H, Urine Urobilinogen 1.0, Ur Leukocyte Esterase TRACE H, Urine RBC OCC, Urine WBC 10-20, Ur Squamous Epith Cells TNTC, Urine Bacteria 3+, Urine Mucus 3+, Urine Glucose NEGATIVE Current Medication Orders Sig/Catracho Start time Last Medication Dose Route Stop Time Status Admin Iopamidol 75 ML ONCE ONE 08/20 1815 UNV 08/20 IV 08/20 1816 1809 Sodium Chloride 10 ML PRN PRN 08/20 181 UNV 08/20 IV 08/20 1939 1809 Sodium Chloride 10 ML PRN PRN 08/20 1745 AC IV 08/21 1732 Orders Procedure Date/time Status DIET-NOTHING BY MOUTH 08/[address] ABD/PELVIS REQ 08/20 174 Complete PARTIAL THROMBOPLASTIN TIME 08/20 1745 Complete PROTHROMBIN TIME 08/20 1745 Complete LIPASE 08/20 174 Complete IV SALINE LOCK 08/20 173 Active CBC WITH AUTO DIFF 08/20 173 Complete CHEM 12 PROFILE 08/20 1732 Complete CULTURE, URINE 08/20 172 Active URINALYSIS/COMPLETE 08/[address] ABD & PELVIS W/ CONTRAST 08/20 UNK Active Departure Departure Time of Disposition 1919 Disposition DC Home or Self Care(routine) Clinical Impression Primary Impression: Abdominal pain Qualifiers: Abdominal location: lower abdomen, unspecified Qualified Code: R10.30 - Lower abdominal pain, unspecified Secondary Impressions: UTI (urinary tract infection) Condition STABLE Referrals Sarita CEBALLOS,Baljit Granados Patient Instructions DI for Abdominal Pain-Adult, DI for Urinary Tract Infection (UTI) Additional Instructions call Sarita for followup return if any worsening pain or lightheadedness to ER Discharge Counseling Counseled pt/family regarding diagnosis, test results, medications/RX, home care, follow up needs Prescriptions Current Visit Scripts NITROFURANTOIN MONOHYD/M-CRYST (Nitrofurantoin Corson-Mcr 100 MG) 100 MG PO BID #14 CAP Phenazopyridine HCl (Pyridium) 100 MG PO TIDP PRN BLADDER SPASM #6 TAB IBUPROFEN (Motrin 600MG) 600 MG PO QIDP PRN BREAKTHROUGH MILD PAIN #12 TAB ED Critical Care Critical Care No at 1926
[2017-08-20 17:56] LABS: LYMPH # 2.9 K/mm3 (0.7-4.5)
[2017-08-20 17:59] LABS: URINE SQUAMOUS CELLS TNTC #/hpf (0-5)
[2017-08-20 18:11] LABS: HEMOGLOBIN 11.6 g/dL (12.2-16.2)
[2017-08-20] MEDS ORDERED: NITROFURANTOIN100 M4 PO (19:24)
[2017-08-20] MEDS ORDERED: PYRIDIUM100 M2 PO (19:24)
[2017-08-20] MEDS ORDERED: MOTRIN 600MG.600 MG PO (19:25)
[2017-08-20 19:41] VITALS: BP 107/70
--- NOTE | 2017-08-21 08:11 | RADIOLOGY REPORT PS360 ---
CT ABD PELVIS W/ CONTRAST COMPARISON: CT scan abdomen pelvis 07/01/2016 HISTORY: Generalized mid and lower abdominal pain, post hysterectomy one month previously. TECHNIQUE: Multiaxial scans obtained from hemidiaphragms the pelvic floor and were performed with IV contrast only. Sagittal and coronal reformats were evaluated as well. FINDINGS: The lower lung zimmerman are clear. The liver spleen stomach Eckerson gallbladder appear grossly normal. The adrenal glands are normal. The kidneys are normal size and show symmetrical function both appearing normal. Small bowel is unremarkable. The appendix is normal in caliber and partially air-filled. There is moderate scattered stool throughout the colon. The uterus is surgically removed. There is a moderate amount fluid within the pelvis probably due to postoperative change though an interval ruptured ovarian cyst is a consideration. Appears be small left ovarian cyst. There is no free air seen. IMPRESSION: Increased amount of pelvic fluid likely due to post surgical changes though a recently ruptured ovarian cyst is a consideration. I basically agree the [facility] report.
--- OUTSIDE RECORDS SUMMARY | 2017-08-28 15:53 | External Medical Summary Rpt | CCD ---
Author Author , LONDON CALLAHAN Address Unknown Phone Care Team Providers Care Behavior Interventionist Name Role Phone Fabiola Calloway MD, Unavailable Unavailable Fabiola VO DO, Unavailable Unavailable MARCO ANTONIO VO DO Purpose Continuity of Care Document - 04-29-2013 through 2016 Problems Code Diagnosis DOS Provider Status 305.1 305.1 11-24-2013 [employer] TOBACCO USE [facility] DISORDER [facility] 487.1 487.1 FLU W 11-24-2013 [facility] RESP [facility] MANIFEST [facility] NEC 780.39 780.39 11-24-2013 [employer] OTHER [facility] CONVULSIONS [facility] 466.0 466.0 ACUTE 11-21-2013 [employer] BRONCHITIS [facility] 511.0 511.0 11-21-2013 [employer] PLEURISY [facility] W/O EFFUS [facility] OR TB 945.26 945.26 2ND 05-01-2013 [place] DEG BURN [facility] 948.00 948.00 [facility] NOS E924.0 E924.0 05-01-2013 [place] ACC-HOT [facility] LIQUID & Hospital STEAM Allergies, Adverse Reactions, Alerts Type Allergy to [...] ce] in Urine by Test strip Urobili 09-16-2 4.0 NEG complet nogen 017 ed [Presen [...] ed [Presen 07:30 ce] in Urine Color 09-14-2 YELLOW YELLOW complet of 017 ed Urine [...] ce] in Urine by Test strip Urobili 09-11-2 1.0 NEG complet nogen 017 ed [Presen [...] 014 gm/dL ed SerPl-m 00:25 Cnc Globuli 3.0 1.3-3.2 complet n 014 gm/dL ed Ser-mCn 00:25 c Albumin 1.1 UNK 1.1-1.8 complet /Glob 014 ed SerPl-m 00:25 Rto Bilirub 0.3 0.2-1.0 complet 014 mg/dL ed SerPl-m 00:25 Cnc AST 50 U/L 15-37 complet SerPl-c 014 ed Cnc 00:25 ALT 01-08-2 105 U/L 30-65 complet SerPl-c 014 ed Cnc 00:25 ALP 2 90 U/L 50-136 complet SerPl-c 014 ed Cnc 00:25 CBC with AUTO DIFF (11-24-2013 00:25) WBC # 01-08-2 5.6 4.8-10. complet Bld 014 K/MM3 8 ed Auto 00:25 RBC # 08-2 3.77 4.2-5.4 complet Bld 014 M/mm3 ed Auto 00:25 Hgb 08-2 11.7 12.2-16 complet Bld-mCn 014 g/dL .2 ed c 00:25 Hct Fr 32.8 % 37.0-47 complet Bld 014 .0 ed 00:25 MCV RBC 11-24-2 87.2 fl 82.2-97 complet 014 .8 ed 00:25 MCH RBC 31.1 pg 27-31.2 complet Qn 014 ed Auto 00:25 MEAN 35.7 31.8-35 complet CORPUSC 014 g/dl .4 ed ULAR 00:25 HGB CONC RDW RBC 11-24-2 13.5 % 11.5-17 complet Auto 014 .5 ed 00:25 Platele 11-24-2 145 142-424 complet t Bld 014 K/mm3 ed Ql 00:25 Manual MEAN 9.9 fl 7.4-10. complet PLATELE 014 4 ed T 00:25 VOLUME Granulo 11-24-2 75.8 % 37.0-80 complet cytes 014 .0 ed Fr Bld 00:25 Auto LYMPH % 08-2 17.0 % 10-50.0 complet 014 ed 00:25 Monocyt 08-2 5.6 % 1.7-9.3 complet es Fr 014 ed Bld 00:25 Auto Eosinop -08-2 1.3 % 0.1-12. complet hil Fr 014 0 ed Bld 00:25 Auto Basophi 08-2 0.3 % 0.1-2.0 complet ls Fr 014 ed Bld 00:25 Auto Granulo 11-24-2 4.3 1.8-7.8 complet cytes # 014 K/mm3 ed Bld 00:25 Auto Lymphoc 1.0 0.7-4.5 complet ytes Fr 014 K/mm3 ed Bld 00:25 Auto Monocyt 11-24-2 0.3 0.1-1.0 complet es # 014 K/mm3 ed Bld 00:25 Auto Eosinop 0.1 0.0-0.4 complet hil # 014 K/mm3 ed Bld 00:25 Auto Basophi 0.0 0-0.2 complet ls # 014 K/MM3 [...] (ER) 4 22:36 4 01:31 [facility] ANNETTE VO DO (ER) 4 18:15 4 19:18 [facility] ANNETTE Calloway MD (ER) 3 22:44 3 23:48 [facility]
--- OUTSIDE RECORDS SUMMARY | 2017-08-28 15:53 | External Medical Summary Rpt | CCD ---
Author Author , LONDON CALLAHAN Address Unknown Phone Care Team Providers Care Machined Parts Metal Sprayer Name Role Phone Fabiola Calloway MD, Unavailable Unavailable Fabiola VO DO, Unavailable Unavailable MARCO ANTONIO VO DO Purpose Continuity of Care Document - 04-29-2013 through 2016 Problems Code Diagnosis DOS Provider Status 305.1 305.1 11-24-2013 [employer] TOBACCO USE [facility] DISORDER [facility] 487.1 487.1 FLU W 11-24-2013 [employer] RESP [facility] MANIFEST [facility] NEC 780.39 780.39 11-24-2013 [employer] OTHER [facility] CONVULSIONS [facility] 466.0 466.0 ACUTE 11-21-2013 [employer] BRONCHITIS [facility] 511.0 511.0 11-21-2013 [employer] PLEURISY [facility] W/O EFFUS [facility] OR TB 945.26 945.26 2ND 05-01-2013 [employer] DEG BURN [facility] 948.00 948.00 [facility] NOS E924.0 E924.0 05-01-2013 [employer] ACC-HOT [facility] LIQUID & Hospital STEAM Allergies, Adverse Reactions, [...] Calloway MD (ER) 4 22:36 4 01:31 [facility] ANNETTE VO DO (ER) 4 18:15 4 19:18 [facility] ANNETTE Calloway MD (ER) 3 22:44 3 23:48 [facility]
--- OUTSIDE RECORDS SUMMARY | 2017-08-28 15:54 | External Medical Summary Rpt | CCD ---
Demographics Preferred Language Vietnamese Marital Status Unknown Advent Affiliation Unknown Race Unknown Ethnic Group Unknown Author Author , LONDON CALLAHAN Address Unknown Phone Immunization No patient found.
--- OUTSIDE RECORDS SUMMARY | 2017-08-28 15:54 | External Medical Summary Rpt | CCD ---
Demographics Preferred Language Wolof Marital Status Unknown Mu-Ism Affiliation Unknown Race Unknown Ethnic Group Unknown Author Author , LONDON CALLAHAN Address Unknown Phone Immunization No patient found.
--- OUTSIDE RECORDS SUMMARY | 2017-08-28 15:55 | External Medical Summary Rpt ---
[...] - 2.0 % Normal No Aug 20 /100 informati [...] Date tion ce etation Range COMMENTS TO RISK PREVENTION ENGINEER: 1 HOUR POST HH Hematocri 37.0 - [...] source source source 17 data data data [id number] prepara O tion POSRELE [Type] ASED 7 [place] Blood product special preparation [Type] Observa Value Referen Units Interpr Notes Date tion ce etation Range Blood BLOOD No No No BLOOD Sep 15 product UNIT informa informa informa UNIT # 2017 RELEASE tion in in in : [id number] 2:15 AM special source source source 17 data data data [id number] prepara O tion POSRELE [Type] ASED 7 [...] Date tion ce etation Range COMMENTS TO RISK PREVENTION ENGINEER: GLORIA CATHETER INSERTION Collected by nurse? Y [...] Date tion ce etation Range COMMENTS TO RISK PREVENTION ENGINEER: GLORIA CATHETER INSERTION Collected by nurse? Y [...] MAY HAVE ADVERSE PSYCHO- SOCIAL IMPACT, [facility] NG.\.br \This report contain s patient informa tion that must be protect ed in [facility] with the Health Insuran ce Portabi lity [...] tion that must be protect ed in [facility] with the Health Insuran ce Portabi lity [...]
--- OUTSIDE RECORDS SUMMARY | 2017-08-28 15:55 | External Medical Summary Rpt ---
[...] Date tion ce etation Range COMMENTS TO DEVELOPMENTAL TRAINING COUNSELOR: 1 HOUR POST HH Hematocri 37.0 - [...] source source source 17 data data data [id number] prepara O tion POSRELE [Type] ASED 7 [place] Blood product special preparation [Type] Observa Value Referen Units Interpr Notes Date tion ce etation Range Blood BLOOD No No No BLOOD Sep 15 product UNIT informa informa informa UNIT # 2017 RELEASE tion in in in : [id number] 2:15 AM special source source source 17 data data data [id number] prepara O tion POSRELE [Type] ASED 7 [...] Date tion ce etation Range COMMENTS TO DEVELOPMENTAL TRAINING COUNSELOR: GLORIA CATHETER INSERTION Collected by nurse? Y [...] Date tion ce etation Range COMMENTS TO DEVELOPMENTAL TRAINING COUNSELOR: GLORIA CATHETER INSERTION Collected by nurse? Y [...] MAY HAVE ADVERSE PSYCHO- SOCIAL IMPACT, [facility] NG.\.br \This report contain s patient informa tion that must be protect ed in [facility] with the Health Insuran ce [...] tion that must be protect ed in [facility] with the Health Insuran ce [...]
== END 2017-08-20 19:43 | disposition home or self-care (01) ==
LOC: ER 17:05
PROVIDERS: Emergency Medicine
DX: R10.30 Lower abdominal pain, unspecified (principal); Z72.0 Tobacco use
CPT/HCPCS: Q9967

== ENCOUNTER → 2017-10-13 | Outpatient (CLI) | payer MEDICAID ==
[~2017-10-13] MED LIST changes: +MOTRIN 600MG.600 MG PO; +NITROFURANTOIN100 M4 PO; +PYRIDIUM100 M2 PO
[2017-10-13 18:49] LABS: LYMPH # 2.6 K/mm3 (0.7-4.5)
[2017-10-13 19:18] LABS: HEMOGLOBIN 14.1 g/dL (12.2-16.2)
[2017-10-13 21:20] LABS: BUN 8 mg/dL (7-18)
[2017-10-13 21:22] LABS: GFR (ESTIMATED) 100 ML/MIN (59-)
== END ==
LOC: LAB 18:31
PROVIDERS: Nurse Practitioner Family
DX: R53.83 Other fatigue (principal); E55.9 Vitamin D deficiency, unspecified

== ENCOUNTER → 2017-10-23 | Outpatient (CLI) | payer MEDICAID ==
[2017-10-23 10:03] LABS: LYMPH # 2.2 K/mm3 (0.7-4.5); LYMPH % 22.3 % (10-50.0)
== END ==
LOC: LAB 09:29
PROVIDERS: Obstetrics & Gynecology
DX: N93.8 Other specified abnormal uterine and vaginal bleeding (principal)